=== PATIENT | male | born 1945 | race Caucasian/White ===

== ENCOUNTER 2020-08-22 13:56 | Outpatient (RCR) | payer MEDICARE, SELFPAY ==
[2013-09-01 17:22] VITALS: BMI 30.8
[2020-08-22] MEDS: COVID-19 VACC, MRNA(PFIZER)/PF 30 MCG/0.3 ML SYRINGE IM (11:15)
[2020-09-12] MEDS: COVID-19 VACC, MRNA(PFIZER)/PF 30 MCG/0.3 ML SYRINGE IM (11:05)
== END 2020-11-19 23:59 ==
LOC: IMMUN 13:56
PROVIDERS: PCP Family Medicine; Referring Provider Family Medicine; Visit Provider Family Medicine
DX: Z23 Encounter for immunization (principal)
CPT/HCPCS: 0001A; 0002A; 91300

== ENCOUNTER 2023-07-16 12:42 | Inpatient (IN) | payer MEDICARE, SELFPAY ==
[2023-07-16 12:44] VITALS: BP 170/82; PULSE 73; RESP 16; TEMP 37.2; O2SAT 97; BMI 27.9
[2023-07-16] MEDS: Ondansetron 4 MG/2 ML Vial IV ×2 (13:27→21:50)
[2023-07-16] MEDS: 0.9% Normal Saline (1000mL) 1,000 ML 1000 ML IV (13:27)
--- NOTE | 2023-07-16 13:38 | EDS_ITS ---
HPI History of Present Illness Chief Complaint: Nausea/Vomiting/Diarrhea Narrative Narrative: Patient is a 78-year-old male with history of hypertension, hyperlipidemia, diabetes who presents to the emergency department for nausea, vomiting, generalized weakness. Patient has been diagnosed with COVID-19 6 days ago, however patient was sick 1 week prior to that. Patient was also positive for COVID-19 however is getting better. Patient states this week he has had no appetite, not eating and drinking normally, has been having nausea and vomiting and this morning had diarrhea. He feels unsteady when he is up secondary to feeling weak, he is here for evaluation, the ODT Zofran that was prescribed to him is not working. He denies any fever or chills, blood in stool or vomit [facility] Medical History (Updated 07/16/23 @ 14:55 by OLEG Denis) Hypercholesteremia Hypertension Type 2 diabetes mellitus Home Medications aspirin 81 mg chewable tablet 81 mg PO DAILY@0800 heart health 09/01/13 [History Last Taken 07/15/23] hydrochlorothiazide 25 mg tablet 25 mg PO DAILY 09/01/13 [History Last Taken 07/15/23] lisinopril 40 mg tablet 40 mg PO DAILY 09/01/13 [History Last Taken 07/15/23] metformin 850 mg tablet 850 mg PO TIDCM 09/01/13 [History Last Taken 07/15/23] amlodipine 5 mg tablet 5 mg PO DAILY blood pressure 07/16/23 [History Last Taken 07/15/23] atorvastatin 40 mg tablet 40 mg PO QHS cholesterol 07/16/23 [History Last Taken 07/15/23] flaxseed oil 1,000 mg capsule 1,000 mg PO QHS supplement 07/16/23 [History Last Taken 07/15/23] glipizide 10 mg tablet, extended release 24 hr 10 mg PO DAILY 07/16/23 [History Last Taken 07/15/23] vit C 250 mg-vit E 90 mg-zinc 40 mg-copper 1 [id number] capsule (PreserVision AREDS-2) 1 tab PO BID eye supplement 07/16/23 [History Last Taken 07/15/23] Allergy/AdvReac Type Severity Reaction Status Date / Time doxycycline AdvReac Nausea/Vom/ Verified 07/16/23 12:43 Diarrhea Social History Smoking Status: Former smoker ROS ROS ED ROS Narrative Constitutional: Negative for fever, chills, weight loss. Positive for weakness Eyes: Negative for vision loss, vision change, double vision ENT: Negative for any sore throat, ear pain, congestion Cardiovascular: Negative for any chest pain, tightness, palpitations Respiratory: Negative for any cough, sputum production, hemoptysis, dyspnea, dys pnea on exertion, orthopnea Gastrointestinal: Negative for any abdominal pain, constipation, blood in stool, blood in vomit. Positive for nausea vomiting diarrhea : Negative for any urinary frequency, dysuria, retention, blood in urine Muscle skeletal: Negative for any myalgias, arthralgias, neck pain, back pain Neurological: Negative for any headache, syncope, paresthesias, dizziness Skin: Negative for any rashes, lumps, itching, abrasions, lacerations Psychiatric: Negative for any depression, anxiety, stress, suicidal ideation, homicidal ideation Hematologic: Negative for any easy bruising, excessive bruising, easy bleeding Allergies: Negative for any eczema, hives, rash EXAM Physical Exam Narrative Exam Narrative: Vital signs reviewed. HEET: Head normocephalic atraumatic, TMs clear bilaterally. Posterior pharynx is clear, dry mucous membranes. Nares clear bilaterally. Neck: Supple with no lymphadenopathy or tenderness. No signs of meningismus. Cardiac: Regular rate and rhythm no murmurs gallops or rubs, equal peripheral pulses bilaterally. Respiratory: Lungs clear to auscultation bilaterally. No chest tenderness. Abdomen: Soft, nontender, nondistended. No abdominal bruit or pulsatile masses. No hepatosplenomegaly Extremities: No peripheral edema, no signs of gross trauma or deformity. Active full range of motion of all extremities. Neuro: Cranial nerves II through XII intact, no focal neurological deficits. Skin: Clean dry and intact with no rash, purpura, petechiae, vesicles or pustules. Backs/flank: No CVA tenderness, no midline spinal tenderness, no deformity. Psych: Normal mood and affect. No SI, HI or acute psychosis. Const Vital Signs: 07/16/23 12:44 07/16/23 14:25 Temperature 98.9 F Temperature Source Temporal Pulse Rate 73 66 Respiratory Rate 16 16 Blood Pressure 170/82 H 145/68 H Blood Pressure Mean 111 93 Pulse Ox 97 97 Oxygen Delivery Method Room Air [facility] Lab Data Labs: Laboratory Results - last 24 hr 07/16/23 13:25 WBC 7.0 RBC 4.81 Hgb 12.9 L Hct 37.0 L MCV 76.9 L MCH 26.8 L MCHC 34.9 RDW Std Deviation 36.2 RDW Coeff of Meghan 12.8 Plt Count 319 MPV 9.3 Immature Gran % (Auto) 0.400 Neut % (Auto) 70.0 Lymph % (Auto) 20.3 [place] % (Auto) 9.1 Eos % (Auto) 0.1 Baso % (Auto) 0.1 Absolute Neuts (auto) 4.9 Absolute Lymphs (auto) 1.41 Nucleated RBC % 0 Sodium 119 L* Potassium 3.7 Chloride 81 L Carbon Dioxide 28.0 Anion Gap 10 BUN 18 Creatinine 0.80 Estim Creat Clear Calc 87.90 Est GFR (MDRD) Af Amer 121 Est GFR (MDRD) Non-Af 100 BUN/Creatinine Ratio 22.5 H Glucose 231 H Calcium 9.7 Total Bilirubin 0.90 AST 52 H ALT 28 Alkaline Phosphatase 81 Total Protein 7.3 Albumin 3.2 Globulin 4.1 Albumin/Globulin Ratio 0.8 L Lipase 80 H Treatment and Re-Evaluation :: Patient appears generally well, patient appears nontoxic, vital signs are stable. Presenting to the emergency department with complaints of nausea, vomiting, generalized weakness. Differential diagnosis includes dehydration, gastroenteritis, bowel obstruction, acute cholecystitis. Patient received basic laboratory values looking for any leukocytosis, electrolyte abnormality. Patient is currently having diarrhea as well as nausea and vomiting, makes bowel obstruction less likely. Patient receive IV fluids, IV Zofran. Patient be reevaluated. Patient has slight relief with the nausea medication. Patient's CBC was unremarkable, patient's chemistries do show some abnormalities. Patient's sodium was 119, this is critically low, this is concerning for the patient's weakness, as well as dehydration. Patient's creatinine is unremarkable. Glucose 231 lipase of 80 which is slightly elevated. Patient was given 1 L of normal saline. I spoke with the patient as well as the patient , patient will need to be admitted to the hospital. They are in agreement. Hospitalist paged. I spoke with hospitalist, patient admitted. Discharge Plan Triage Chief Complaint: Nausea/Vomiting/Diarrhea ED Midlevel Provider: Grupo Osborn ED Provider: Zuleika Chong Dx/Rx/DC Orders Clinical Impression: Acute dehydration, Weakness, Nausea & vomiting, Acute hyponatremia Prescriptions: No Action metformin 850 MG tablet 850 mg PO TIDCM aspirin 81 MG tablet,chewable 81 mg PO DAILY@0800 hydrochlorothiazide 25 MG tablet 25 mg PO DAILY lisinopril 40 MG tablet 40 mg PO DAILY flaxseed oil 1,000 mg capsule 1,000 mg PO QHS glipizide 10 mg tablet extended release 24hr 10 mg PO DAILY amlodipine 5 mg tablet 5 mg PO DAILY atorvastatin 40 mg tablet 40 mg PO QHS PreserVision AREDS-2 250-90-40-1 mg capsule 1 tab PO BID Primary Care Provider: Brennen Roland Referrals: Brennen Roland MD [Primary Care Provider] - Disposition Disposition: Acute Care Hospital [facility]
[2023-07-16 13:43] LABS: Absolute Lymphocyte Count 1.41 X10^3/uL (0.83-4.51); Absolute Neutrophil Count 4.9 X10^3/uL (2.0-7.7); Basophil# 0.01 X10^3/uL; Basophil% 0.1 % (0-1); Eosinophil# 0.01 X10^3/uL; Eosinophils% 0.1 % (0-5); Hemoglobin 12.9 g/dL (13.0-16.5); Lymphocyte # 1.41 X10^3/ul (0.83-4.51); Lymphocyte % 20.3 % (19-41); Mean Corp Hgb Conc 34.9 g/dL (32-36); Mean Corpuscular Hgb 26.8 pg (27.0-32.0); Mean Corpuscular Volume 76.9 fL (80-94); Mean Platelet Vol. 9.3 fl (6.2-12.0); Monocyte# 0.63 X10^3/uL; Monocyte% 9.1 % (0-10); NRBC Flagged by Analyzer 0 % (0-5); Neutrophil # 4.86 X10^3/uL (2.7-7.7); Platelet Count 319 K/mm3 (150-450); RBC Distribution Width CV 12.8 % (11.6-14.6); RBC Distribution Width SD 36.2 fl (35.1-43.9); Red Blood Count 4.81 M/mm3 (4.6-6.2)
[2023-07-16 14:00] LABS: ALB/GLOB Ratio 0.8 RATIO (0.9-2.4); AST(SGOT) 52 U/L (15-37); Alanine Aminotransfer ALT/SGPT 28 U/L (16-61); Albumin, Serum 3.2 g/dL (3.2-5.0); Alkaline Phosphatase 81 U/L (45-117); Anion Gap 10 (5-15); BUN 18 mg/dL (7-18); BUN/Creat Ratio 22.5 RATIO (10-20); Calcium,Total 9.7 mg/dL (8.5-10.1); Chloride 81 mmol/L (98-107); EST Glomerular Filtration Rate 100 mL/min (>60); Est Glom Filt Rate - Afr Amer 121 mL/min (>60); Globulin 4.1 g/dL (2.2-4.2); Glucose 231 mg/dL (74-106); Lipase 80 U/L (13-75); Potassium 3.7 mmol/L (3.5-5.1); Protein, Total 7.3 g/dL (6.4-8.2); Sodium Level 119 mmol/L (136-145)
[2023-07-16 14:25] VITALS: BP 145/68; PULSE 66; RESP 16; O2SAT 97
--- NOTE | 2023-07-16 15:06 | HP.PCM.HOS_ITS ---
HPI - General General Date of Admission: 07/16/23 Date of Service: 07/16/23 Chief Complaint: Intractable nausea vomiting HPI Narrative ROSA HIGGINS, is a 78 M with history of hypertension and diabetes who presented to [facility] 07/16/2023 due to intractable nausea, vomiting, and general weakness and now diarrhea. Patient was in his usual health until 2 weeks ago when he developed URI like symptoms and then a week ago was diagnosed with COVID, URI symptoms improved however around a week ago patient began to develop nausea and vomiting and very poor p.o. intake and has been progressively weaker and this morning developed diarrhea. Given his inability to tolerate p.o. and concerns for dehydration brought him to the ED. In the ED he was found have a sodium of 119 with last sodium in outlying facility records in March was 133. Hospitalist contacted for admission. Patient evaluated with at bedside and they report history as above. He is feeling slightly better in the ED now that he has received Zofran and fluids but still feeling weak and generally unwell. Denies history of problems with his sodium, does take hydrochlorothiazide and endorses very poor p.o. intake for the past 7 days as above. Patient denies any headache or neurological symptoms. Denies abdominal pain, no shortness of breath or cough, no fevers or chills, no swelling in extremities, denies any other complaints. [facility] Medical History (Updated 07/16/23 @ 15:[address] Akiko Montero MD) Hypercholesteremia Hypertension Type 2 diabetes mellitus Home Medications aspirin 81 mg chewable tablet 81 mg PO DAILY@0800 heart health 09/01/13 [History Last Taken 07/15/23] hydrochlorothiazide 25 mg tablet 25 mg PO DAILY 09/01/13 [History Last Taken 07/15/23] lisinopril 40 mg tablet 40 mg PO DAILY 09/01/13 [History Last Taken 07/15/23] metformin 850 mg tablet 850 mg PO TIDCM 09/01/13 [History Last Taken 07/15/23] amlodipine 5 mg tablet 5 mg PO DAILY blood pressure 07/16/23 [History Last Taken 07/15/23] atorvastatin 40 mg tablet 40 mg PO QHS cholesterol 07/16/23 [History Last Taken 07/15/23] flaxseed oil 1,000 mg capsule 1,000 mg PO QHS supplement 07/16/23 [History Last Taken 07/15/23] glipizide 10 mg tablet, extended release 24 hr 10 mg PO DAILY 07/16/23 [History Last Taken 07/15/23] vit C 250 mg-vit E 90 mg-zinc 40 mg-copper 1 [id number] capsule (PreserVision AREDS-2) 1 tab PO BID eye supplement 07/16/23 [History Last Taken 07/15/23] Allergy/AdvReac Type Severity Reaction Status Date / Time doxycycline AdvReac Nausea/Vom/ Verified 07/16/23 12:43 Diarrhea Social History Smoking Status: Former smoker ROS ROS Narrative General: Denies fever/chills HENT: Denies headache, denies stuffy nose, denies sore throat EYES: Denies changes in vision Resp: Denies cough, denies shortness of breath Cardiac: Denies chest pain GI: Denies abdominal pain, has began to have diarrhea, positive nausea vomiting : Denies changes in urination Extremity: Denies swelling MSK: Generalized weakness Neuro: Denies any numbness/tingling Heme: Denies any bleeding or bruising Skin: Denies rashes Psychiatric: No complaints voiced Vital Signs Vital Signs Vital Signs: 07/16/23 12:44 07/16/23 14:25 Temperature 98.9 F Temperature Source Temporal Pulse Rate 73 66 Respiratory Rate 16 16 Blood Pressure 170/82 H 145/68 H Blood Pressure Mean 111 93 Pulse Ox 97 97 Oxygen Delivery Method Room Air Weight Weight: 88.269 kg Body Mass Index (BMI) 27.9 Physical Exam Narrative General: Alert, oriented, no apparent distress HEENT: Atraumatic, normocephalic Eyes: Anicteric, normal conjunctiva, extraocular movements grossly intact Neck: Supple Respiratory: Clear to auscultation bilaterally, normal respiratory effort Cardiovascular: Regular rate and rhythm GI: Soft, nontender, nondistended Extremities: No edema Musculoskeletal: Moving all extremities Neuro: No overt focal neurological deficits Skin: No rashes appreciated Psych: Cooperative Results Lab / Micro Data 07/16/23 13:25 07/16/23 13:25 Labs: Laboratory Results - last 24 hr 07/16/23 13:25: WBC 7.0, RBC 4.81, Hgb 12.9 L, Hct 37.0 L, MCV 76.9 L, MCH 26.8 L, MCHC 34.9, RDW Std Deviation 36.2, RDW Coeff of Meghan 12.8, Plt Count 319, MPV 9.3, Immature Gran % (Auto) 0.400, Neut % (Auto) 70.0, Lymph % (Auto) 20.3, [place] % (Auto) 9.1, Eos % (Auto) 0.1, Baso % (Auto) 0.1, Absolute Neuts (auto) 4.9, Absolute Lymphs (auto) 1.41, Nucleated RBC % 0, Sodium 119 L*, Potassium 3.7, Chloride 81 L, Carbon Dioxide 28.0, Anion Gap 10, BUN 18, Creatinine 0.80, Estim Creat Clear Calc 87.90, Est GFR (MDRD) Af Amer 121, Est GFR (MDRD) Non-Af 100, BUN/Creatinine Ratio 22.5 H, Glucose 231 H, Calcium 9.7, Total Bilirubin 0.90, AST 52 H, ALT 28, Alkaline Phosphatase 81, Total Protein 7.3, Albumin 3.2, Globulin 4.1, Albumin/Globulin Ratio 0.8 L, Lipase 80 H Assessment & Plan Assessment/Plan (1) Acute hyponatremia: (2) Acute dehydration: (3) Nausea & vomiting: (4) Weakness: (5) Hypertension: (6) Type 2 diabetes mellitus: PLAN: Plan #Hyponatremia -Unclear chronicity but suspect sub acute due to dehydration and hydrochlorothiazide -[facility] records demonstrated Na 133 in March -Not presently symptomatic, patient being rehydrated -Will check serum and urine osmole's -Urine studies -Trend BMP #Intractable n/v/diarrhea -Likely secondary to viral illness however given diarrhea is new we will check stool studies -Will try full liquid diet, can make n.p.o. if needed -No abd pain, do not see indication for abd imaging at this time -Advance as tolerated -Continue IVF for another 1L and can reeval for further fluids if Na improving -Zofran as needed #Recent covid 19 infection -Patient presently on precautions based on positive test 6 days ago, symptoms started up to week before that however some may be able to consider removing precautions during this admission -Not hypoxic or having sx, no indication for steroids or other treatments at this time -i/s #Type 2 diabetes mellitus -Glucose checks and sliding scale insulin -Hold oral hypoglycemics # Hypertension -Holding hydrochlorothiazide -Continue amlodipine -Given dehydration holding losartan, if kidney fxn stable can resume tomorrow # Hyperlipidemia -Continue statin #DVT ppx: Lovenox subcu Akiko Montero MD Time spent in the patient's overall evaluation,decision-making process, review of diagnostic data, adjustment of management, discussion with other providers, nursing nursing and ancillary staff involved in patient's care documentation, 55 minutes Charges/Coding Visit Charges Inpatient E&M: 95438 Init Hosp L2
[2023-07-16 15:13] VITALS: PULSE 68; RESP 18; TEMP 36.7; BMI 27.6
[2023-07-16 15:40] LABS: Bacteria 0 SEEN /hpf (None Seen); Mucous, Urine 0 SEEN /hpf (<or=2+); Red Blood Cells-Urine 0 SEEN /hpf (0-5); Squamous Epithelial Cells - UA 0 SEEN /hpf (0-5); White Blood Cells 0 SEEN /hpf (0-5)
[2023-07-16 15:47] LABS: Color, Urine Yellow (Yellow); Glucose, Dipstick 100 mg/dl (Normal); Ketone-Dipstick 5 mg/dl (Negative); Leukocyte Esterase-Dipstick Negative /ul (Negative); Nitrite-Dipstick Negative (Negative); Occult Blood-Urine Negative /ul (Negative); Protein-Dipstick 30 mg/dl (Negative); Specific Gravity, Urine 1.015 (1.002-1.030); Urine Bilirubin Dipstick Negative (Negative); Urine Clarity Sl. Cloudy (Clear); Urine Urobilinogen 1 mg/dl (Normal); Urine pH 6.5 (5.0 - 8.0)
[2023-07-16 15:53] VITALS: BP 137/67; PULSE 80; RESP 16; TEMP 36.4; O2SAT 95
[2023-07-16] MEDS: 0.9% Normal Saline (1000mL) 1,000 ML 75 ML IV (15:57)
[2023-07-16] MEDS: Insulin Lispro 100 UNIT/ML INSULN.PEN SC ×2 (15:57→21:50)
[2023-07-16 16:21] LABS: Bedside Glucose 206 mg/dL (74-106)
[2023-07-16 16:59] LABS: Anion Gap 5 (5-15); BUN 15 mg/dL (7-18); BUN/Creat Ratio 21.5 RATIO (10-20); Calcium,Total 8.9 mg/dL (8.5-10.1); Chloride 85 mmol/L (98-107); EST Glomerular Filtration Rate 117 mL/min (>60); Est Glom Filt Rate - Afr Amer 141 mL/min (>60); Estimated Creatinine Clearance 81.11 ml/min; Glucose 195 mg/dL (74-106); Potassium 3.5 mmol/L (3.5-5.1); Sodium Level 118 mmol/L (136-145)
[2023-07-16 17:22] LABS: Osmolality, Serum 263 mOsm/KG (280-301)
--- OUTSIDE RECORDS SUMMARY | 2023-07-16 17:42 | XMS RPT_ITS | CCD ---
Author Name Unknown Address [address] [place] [address] Organization [facility] Care Team Providers Care Registered Representative Name Role Phone Jd Silva MD Primary Care Provider JD SILVA Primary Care Unavailable JD SILVA Primary Care Unavailable JD SILVA Attending Unavailable JD SILVA Primary Care Unavailable JD SILVA Referring Unavailable JD SILVA Primary Care Unavailable JD SILVA Attending Unavailable JD SILVA Primary Care Unavailable Allergies Allergy Classification Reported Allergen(s) Allergy Type Date of Onset Reaction(s) Facility (7 sources) Tetracycline; Translations: [TETRACYCLINE] Drug Allergy 09-16-2010 Unknown [facility] Medications Completed/Discontinued Medications Medication Drug Class(es) Dates Sig (Normalized) Sig (Original) amLODIPine 5 mg oral tablet (8 sources) Dihydropyridine Calcium Channel Max Start: 03-18-2021 End: 12-01-2022 take 1 tablet by mouth once daily amLODIPine (NORVASC) 5 mg tablet Indications: Essential hypertension, benign Take 1 tablet by mouth once daily. 90 tablet 3 12/01/2022 Active Problems Active Problems Problem Classification Problem Date Documented Da te Episodic/Chronic Diabetes mellitus without complication (13 sources) Type 2 diabetes mellitus without complication; Translations: [Type 2 diabetes mellitus without complications] Onset: 02-16-2006 Chronic Disorders of lipid metabolism (12 sources) Mixed hyperlipidemia; Translations: [Mixed hyperlipidemia] Onset: 02-16-2006 Chronic Essential hypertension (12 sources) Benign essential hypertension; Translations: [Essential (primary) hypertension] Onset: 07-15-2007 Chronic Past or Other Problems Problem Classification Problem Date Documented Da te Episodic/Chronic Abdominal hernia (12 sources) Umbilical hernia; Translations: [Umbilical hernia without obstruction or gangrene] Onset: 06-20-2012 06-20-2012 Episodic Other screening for suspected conditions (not mental disorders or infectious disease) (13 sources) Liver function tests abnormal; Translations: [Other specified abnormal findings of blood chemistry] Onset: 01-12-2011 01-12-2011 Episodic Results Test Name Value Interpretation Reference Range Facil ity Vital Signs Date Time Vital Sign Value Performing Clinician Ion conti 03-30-2023 09:25-0400 Body weight 90.22 kg Jd Silva MD Work Phone: [facility] 03-30-2023 09:25-0400 Diastolic blood pressure 80 mm[Hg] Jd Silva MD Work Phone: [facility] 03-30-2023 09:25-0400 Heart rate 70 /min Jd Silva MD Work Phone: [facility] 03-30-2023 09:25-0400 Respiratory rate 16 /min Jd Silva MD Work Phone: [facility] 03-30-2023 09:25-0400 Systolic blood pressure 154 mm[Hg] Jd Silva MD Work Phone: [facility] 12-01-2022 09:40-0400 Body weight 94.35 kg Jd Silva MD Work Phone: [facility] 12-01-2022 09:40-0400 Diastolic blood pressure 72 mm[Hg] Jd Silva MD Work Phone: [facility] 12-01-2022 09:40-0400 Heart rate 68 /min Jd Silva MD Work Phone: [facility] 12-01-2022 09:40-0400 Respiratory rate 14 /min Jd Silva MD Work Phone: [facility] 12-01-2022 09:40-0400 Systolic blood pressure 120 mm[Hg] Jd Silva MD Work Phone: [facility] 06-01-2022 09:41-0500 Diastolic blood pressure 68 mm[Hg] Jd Silva MD Work Phone: [facility] 06-01-2022 09:41-0500 Systolic blood pressure 146 mm[Hg] Jd Silva MD Work Phone: [facility] 06-01-2022 09:38-0500 Body weight 95.53 kg Jd Silva MD Work Phone: [facility] 06-01-2022 09:38-0500 Heart rate 78 /min Jd Silva MD Work Phone: [facility] 06-01-2022 09:38-0500 Respiratory rate 16 /min Jd Silva MD Work Phone: [facility] 11-25-2021 08:52-0400 Body weight 94.98 kg Jd Silva MD Work Phone: [facility] 11-25-2021 08:52-0400 Diastolic blood pressure 72 mm[Hg] Jd Silva MD Work Phone: [facility] 11-25-2021 08:52-0400 Heart rate 66 /min Jd Silva MD Work Phone: [facility] 11-25-2021 08:52-0400 Respiratory rate 16 /min Jd Silva MD Work Phone: [facility] 11-25-2021 08:52-0400 Systolic blood pressure 124 mm[Hg] Jd Silva MD Work Phone: [facility] Encounters Encounter Date Encounter Type Care Provider Facility Start: 07-12-2023 End: 07-12-2023 ambulatory JD SILVA Facility:[facility] Start: 03-30-2023 End: 03-30-2023 ambulatory JD SILVA Facility:[facility] Start: 03-30-2023 End: 03-30-2023 Patient encounter procedure Jd Silva MD Work Phone: [facility] Procedures Date Procedure Procedure Detail Performing Clinician Start: 11-26-2020 Adult depression scr eening assessment Jd Silva MD Work Phone: Start: 04-12-2012 Colonoscopy Jd cisse MD Work Phone: Plan of Treatment Date Care Activity Detail Author Start: 03-22-2024 Hepatitis B surface antibody level LDL Cholesterol [facility] Start: 12-02-2023 3 comp foot exam completed DIABETIC FOOT EXAM [facility] Start: 12-02-2023 ANNUAL PCP TEAM PROJECT SAFETY MANAGER CECI DISEASE VISIT ANNUAL PCP TEAM CHRONIC DISEASE VISIT [facility] Start: 12-02-2023 BP CONTROLLED (<130/80) BP CONTROLLE D (<130/80) [facility] Start: 12-02-2023 HEPATITIS C SCREENING HEPATITIS C SC SARAH [facility] Immunizations Immunization Date Immunization Notes Care Provider Fa cility 03-29-2023 COVID-19 vaccine, ag e 12+ yr, season (PFIZER-BIONTECH) Jd Silva MD Work Phone: [facility] 03-29-2023 respiratory syncytia l virus (RSV) vaccine, bivalent (ABRYSVO) Jd Silva MD Work Phone: [facility] 02-09-2023 influenza (aIIV4) vaccine, age 65+ yr, quadrivalent, PF (FLUAD QUAD) Jd Silva MD Work Phone: [facility] 02-09-2023 zoster vaccine recombinant Jd Silva MD Work Phone: [facility] 09-12-2020 COVID-19 vaccine, ag e 12+ yr (PFIZER-BIONTECH - PURPLE TOP) Jd Silva MD Work Phone: [facility] 08-22-2020 COVID-19 vaccine, ag e 12+ yr (PFIZER-BIONTECH - PURPLE TOP) Jd Silva MD Work Phone: [facility] 03-03-2020 influenza, high dose seasonal, preservative-free Jd Silva MD Work Phone: [facility] 03-09-2019 influenza, high dose seasonal, preservative-free Jd Silva MD Work Phone: [facility] 03-20-2016 influenza, high dose seasonal, preservative-free Jd Silva MD Work Phone: [facility] 09-13-2015 pneumococcal conjuga te vaccine, 13 valent Jd Silva MD Work Phone: [facility] 04-19-2015 influenza, seasonal, injectable Jd Silva MD Work Phone: [facility] 01-23-2014 pneumococcal polysaccharide vaccine, 23 valent Jd Silva MD Work Phone: [facility] 07-20-2013 zoster vaccine, live Jd rosenbaum MD Work Phone: [facility] Work Phone: 03-14-2010 influenza virus vacc ine, unspecified formulation Jd Silva MD Work Phone: [facility] Work Phone: 03-14-2009 influenza virus vacc ine, unspecified formulation Jd Silva MD Work Phone: [facility] Work Phone: 07-15-2007 pneumococcal polysaccharide vaccine, 23 valent Jd Silva MD Work Phone: [facility] Work Phone: 04-14-2006 influenza virus vacc ine, whole virus Jd Silva MD Work Phone: [facility] Work Phone: 02-13-2004 tetanus and diphther ia toxoids, adsorbed, preservative free, for adult use (2 Lf of tetanus toxoid and 2 Lf of diphtheria toxoid) Jd Silva MD Work Phone: [facility] Payers Date Payer Category Payer Medicare HU[employer]NA MEDICARE HU[employer]NA GOLD PLUS [id number] 2020-Present [phone] [address] [address] [place] [address] O [id number] 2020 Medicare HUMANA MEDICARE [employer]NA GOLD PLUS [id number] 2020-Present [phone] [address] [address] [place] [address] O [id number] 2020 Private Health Insurance [id number] Social History Date Type Detail Facility Start: 08-08-2012 End: 06-01-2022 Tobacco smoking status NHIS Ex-smoker [facility] Work Phone: Start: 08-08-2012 End: 06-01-2022 Tobacco use and exposure Smokeless tobacco non-user [facility] Work Phone: Start: 11-25-2021 End: 03-30-2023 Alcohol intake Current drinker of alcohol (finding) [facility] Start: 08-08-2012 History SDOH Alcohol Comment couple times per month [facility] Start: 08-08-2012 Tobacco Comment remote [facility] Start: 1945 Sex Assigned At Not on file [facility] Start: 11-15-2021 End: 11-25-2021 Exposure to SARS-CoV-2 (event) Not sure [facility] History of tobacco use Current smoker [facility] Work Phone: Start: 06-01-2022 Tobacco Comment Remote. Quit s moking 40-50 years ago. [facility] Start: 12-01-2022 End: 03-30-2023 History of Social function [facility] Work Phone: Start: 12-01-2022 End: 03-30-2023 Tobacco use panel [facility] Work Phone: Adult Depression Screening Assessment 0 [facility] Work Phone: Clinical Notes 12-13-2009 to 07-12-2023 Jd Silva MD - 03/30/2023 9:40 AM EDTTelephone Encounter - Nora Hanson Ma - 12/29/2022 3:20 PM EDTTelephone Encounter - Rodney Pugh APRN.CNP - 12/29/2022 3:16 PM EDT Note Date & Type Note Facility 07-12-2023 Note HNO ID: [id number] Author: CELIA PATINO APRN.CNP Service: ? Author Type: Nurse Practitioner Type: Progress Notes Filed: 07/12/2023 12:03 Note Text: Subjective HPI Kannan Higgins is a 78 year old male who presents with nausea and vomiting and a positive test for COVID at home yesterday. He developed sore throat and nasal congestion a week ago, and thought he just had a cold. He has been taking lakeisha seltzer cold at home. His is also sick and tested + for COVID. He has not had a fever. He states his cold symptoms have mostly resolved and then a couple days ago he vomited twice, yesterday he vomited once, and this morning he vomited once. He has nausea. States he has been drinking a lot of water and is able to keep that down. Review of Systems Constitutional: Negative for chills, fever and malaise/fatigue. HENT: Positive for congestion and sore throat. Respiratory: Negative for cough and shortness of breath. Cardiovascular: Negative for chest pain. Gastrointestinal: Positive for nausea and vomiting. Negative for abdominal pain and diarrhea. Musculoskeletal: Negative for myalgias. Neurological: Negative for headaches. BP 144/62 Pulse 86 Temp 36.8 ?C (98.2 ?F) Resp 16 Wt 89.8 kg (198 lb) SpO2 96% PAST MEDICAL HISTORY Diagnosis Date Diabetes mellitus without mention of complication Diabetes mellitus Essential hypertension, benign Hyperlipidemia PAST SURGICAL HISTORY Procedure Laterality Date COLONOSCOPY 04/14/2012 REMV CATARACT EXTRACAP,INSERT LENS Left 05/2021 Dr. Segovia REMElan CATARACT EXTRACAP,INSERT LENS Right 07/2021 Dr. Segovia RPR UMBILICAL HRNA 5 YRS/> REDUCIBLE 08/19/2012 with Small Ventralex Mesh ALLERGIES Tetracycline MEDICATIONS lisinopril (ZESTRIL) 40 mg tablet Take 1 tablet by mouth once daily. atorvastatin (LIPITOR) 40 mg tablet Take 1 tablet by mouth once daily. glipiZIDE (GLUCOTROL XL) 10mg 24 hr tablet Take 1 tablet by mouth once daily. amLODIPine (NORVASC) 5 mg tablet Take 1 tablet by mouth once daily. metFORMIN (GLUCOPHAGE) 850 mg tablet Take 1 tablet by mouth three times daily with meals. hydroCHLOROthiazide 25 mg tablet Take 1 tablet by mouth once daily. Flaxseed Oil Oil ASPIRIN 81 MG TAB Take one(1) tablet daily. ondansetron orally disintegrating (ZOFRAN ODT) 4 mg disintegrating tablet Take 1 tablet by mouth every 6 hours as needed for nausea/vomiting. FAMILY HISTORY Problem Relation Age of Onset Heart Mother Heart Father other (ulcers [Other]) Father Social History Tobacco Use Smoking status: Former Smokeless tobacco: Never Tobacco comments: Remote. Quit smoking 40-50 years ago. Vaping Use Vaping Use: Never used Substance Use Topics Alcohol use: Yes Comment: couple times per month Drug use: No Objective Physical Exam Vitals and nursing note reviewed. Constitutional: General: He is not in acute distress. Appearance: Normal appearance. He is not ill-appearing. Cardiovascular: Rate and Rhythm: Normal rate and regular rhythm. Heart sounds: Normal heart sounds. Pulmonary: Effort: Pulmonary effort is normal. No respiratory distress. Breath sounds: Normal breath sounds. No wheezing or rales. Skin: General: Skin is warm and dry. Findings: No erythema or rash. Neurological: Mental Status: He is alert. ASSESSMENT/PLAN: 1. Nausea and vomiting, unspecified vomiting type - ICD9: 787.01, ICD10: R11.2 (primary diagnosis) - ONDANSETRON 4 MG DISINTEGRATING TABLET 2. COVID-19 - ICD9: 079.89, ICD10: U07.1 - per positive home test. - symptoms x 5 days, supportive care as discussed. - offered confirmation testing, patient declined. - Follow-up with your PCP in 3-5 days if symptoms have not improved or sooner if symptoms worsen - Discussed red flags and need for immediate medical evaluation if any occur. - Discussed supportive care treatment with fluids, rest and analgesia. - Discussed expected course of illness Celia Patino APRN.[facility] 03-30-2023 Note HNO ID: [id number] Author: Jd Silva MD Service: ? Author Type: Physician Type: Progress Notes Filed: 03/30/2023 10:15 AM Note Text: Chief Complaint Patient presents with: 4 month follow up HPI Kannan Higgins is a 78 year old male who presents here today for 4 month follow up. Denies any bowel, GI, or urinary issues. HTN: Does not check BP at home. Taking Norvasc 5 mg daily, Lisinopril 40 mg daily and HCTZ 25 mg daily. Denies any chest pains, dizziness, or SOB. DM: Pt was started on Jardiance last visit but stated that he took it over 2 weeks and it caused blurry vision so this was changed to the Rybelsus but pt never started it, cost too much. Taking Metformin 850 mg 1 pill TID, Glucotrol xl 10 mg daily. Denies any hypoglycemic episodes, no neuropathy sx. Has been checking BS once daily in AM, non fasting readings 150-160. He has been strict about diet and walking more for exercise. Eye exams done at [facility]. Lipid: Taking Lipitor 40 mg daily, tolerating well, no myalgia or gi upset. Tries to watch diet and walking a few miles a day for exercise. He has cut down evening snacks, not eating anything after supper. Past medical history, appointments, medications, allergies reviewed. Previous Medical History PAST MEDICAL HISTORY Diagnosis Date Diabetes mellitus without mention of complication Diabetes mellitus Essential hypertension, benign Hyperlipidemia Previous Surgical History PAST SURGICAL HISTORY Procedure Laterality Date COLONOSCOPY 04/14/2012 REMV CATARACT EXTRACAP,INSERT LENS Left 05/2021 Dr. Segovia REMV CATARACT EXTRACAP,INSERT LENS Right 07/2021 Dr. Segovia RPR UMBILICAL HRNA 5 YRS/> REDUCIBLE 08/19/2012 with Small Ventralex Mesh Family History FAMILY HISTORY Problem Relation Age of Onset Heart Mother Heart Father other (ulcers [Other]) Father Patient Allergies ALLERGIES Allergen Reactions Tetracycline Unknown Current Medications Current Outpatient Medications on File Prior to Visit Medication Sig semaglutide (RYBELSUS) 3 mg tablet Take 1 tablet by mouth daily before breakfast. Take 30 minutes before the first food, beverage, or other oral medications of the day with no more than 4 ounces of plain water lisinopril (ZESTRIL) 40 mg tablet Take 1 tablet by mouth once daily. atorvastatin (LIPITOR) 40 mg tablet Take 1 tablet by mouth once daily. glipiZIDE (GLUCOTROL XL) 10mg 24 hr tablet Take 1 tablet by mouth once daily. amLODIPine (NORVASC) 5 mg tablet Take 1 tablet by mouth once daily. metFORMIN (GLUCOPHAGE) 850 mg tablet Take 1 tablet by mouth three times daily with meals. hydroCHLOROthiazide 25 mg tablet Take 1 tablet by mouth once daily. Flaxseed Oil Oil ASPIRIN 81 MG TAB Take one(1) tablet daily. No current facility-administered medications on file prior to visit. Social History Social History Tobacco Use Smoking status: Former Smokeless tobacco: Never Tobacco comments: Remote. Quit smoking 40-50 years ago. Vaping Use Vaping Use: Never used Substance Use Topics Alcohol use: Yes Comment: couple times per month Drug use: No EXAM: BP 154/80 Pulse 70 Resp 16 Wt 90.2 kg (198 lb 14.4 oz) General Appearance: Well appearing, alert, in no acute distress, well-hydrated, well nourished. and Overweight. Lungs: Lungs clear to auscultation. No wheezing, rhonchi, rales.. Heart: RRR without murmur, gallop, or rubs. No ectopy. Health Maintenance List DTaP,Tdap,Td Vaccine(1 - Tdap) due on 02/14/2004 Hepatitis B Vaccine(1 of 3 - Risk 3-dose series) Never done Advance Directive Discussion Never done HbA1C due on 02/23/2023 Shingrix Vaccine(3 of 3) due on 04/06/2023 Hepatitis C Screening due on 12/02/2023 Dilated Retinal Exam due on 10/28/2023 Urine Albumin:Creatinine Ratio due on 11/24/2023 LDL Cholesterol due on 11/24/2023 Diabetic Foot Exam due on 12/02/2023 Annual PCP Team Chronic Disease Visit due on 12/02/2023 BP Controlled (<130/80) due on 12/02/2023 Influenza Vaccine Completed Depression Assessment Completed Covid-19 Vaccine Completed Pneumococcal Vaccine: 65+ Completed Colorectal Cancer Screening Discontinued Data reviewed Appointment on 03/22/2023 Component Date Value Cholesterol, Total 03/22/2023 108 Triglyceride 03/22/2023 136 HDL Cholesterol 03/22/2023 48 Non HDL Cholesterol 03/22/2023 60 Fasting Time 03/22/2023 12 VLDL Cholesterol 03/22/2023 27 TC:HDL Ratio 03/22/2023 2.25 LDL Cholesterol 03/22/2023 33 LDL:HDL Ratio 03/22/2023 0.69 Hemoglobin A1C 03/22/2023 7.4 (H) Estimated Average Glucose 03/22/2023 166 Protein, Total 03/22/2023 6.8 Albumin 03/22/2023 4.5 Calcium, Total 03/22/2023 9.7 Bilirubin, Total 03/22/2023 0.4 Alkaline Phosphatase 03/22/2023 50 AST 03/22/2023 40 ALT 03/22/2023 27 Glucose 03/22/2023 201 (H) BUN 03/22/2023 10 Creatinine 03/22/2023 0.61 (L) Sodium 03/22/2023 132 (L) Potassium 03/22/2023 4 (more content not included)... [facility] 03-30-2023 History of Present illness Narrative Chief Complaint Patient presents with: 4 month follow up HPI Kannan Higgins is a 78 year old male who presents here today for 4 month follow up. Denies any bowel, GI, or urinary issues. HTN: Does not check BP at home. Taking Norvasc 5 mg daily, Lisinopril 40 mg daily and HCTZ 25 mg daily. Denies any chest pains, dizziness, or SOB. DM: Pt was started on Jardiance last visit but stated that he took it over 2 weeks and it caused blurry vision so this was changed to the Rybelsus but pt never started it, cost too much. Taking Metformin 850 mg 1 pill TID, Glucotrol xl 10 mg daily. Denies any hypoglycemic episodes, no neuropathy sx. Has been checking BS once daily in AM, non fasting readings 150-160. He has been strict about diet and walking more for exercise. Eye exams done at [facility]. Lipid: Taking Lipitor 40 mg daily, tolerating well, no myalgia or gi upset. Tries to watch diet and walking a few miles a day for exercise. He has cut down evening snacks, not eating anything after supper. Past medical history, appointments, medications, allergies reviewed. Previous Medical History PAST MEDICAL HISTORY Diagnosis Date Diabetes mellitus without mention of complication Diabetes mellitus Essential hypertension, benign Hyperlipidemia Previous Surgical History PAST SURGICAL HISTORY Procedure Laterality Date COLONOSCOPY 04/14/2012 REMV CATARACT EXTRACAP,INSERT LENS Left 05/2021 Dr. Luca MORAES CATARACT EXTRACAP,INSERT LENS Right 07/2021 Dr. Segovia RPR UMBILICAL HRNA 5 YRS/> REDUCIBLE 08/19/2012 with Small Ventralex Mesh Family History FAMILY HISTORY Problem Relation Age of Onset Heart Mother Heart Father other (ulcers [Other]) Father Patient Allergies ALLERGIES Allergen Reactions Tetracycline Unknown Current Medications Current Outpatient Medications on File Prior to Visit Medication Sig semaglutide (RYBELSUS) 3 mg tablet Take 1 tablet by mouth daily before breakfast. Take 30 minutes before the first food, beverage, or other oral medications of the day with no more than 4 ounces of plain water lisinopril (ZESTRIL) 40 mg tablet Take 1 tablet by mouth once daily. atorvastatin (LIPITOR) 40 mg tablet Take 1 tablet by mouth once daily. glipiZIDE (GLUCOTROL XL) 10mg 24 hr tablet Take 1 tablet by mouth once daily. amLODIPine (NORVASC) 5 mg tablet Take 1 tablet by mouth once daily. metFORMIN (GLUCOPHAGE) 850 mg tablet Take 1 tablet by mouth three times daily with meals. hydroCHLOROthiazide 25 mg tablet Take 1 tablet by mouth once daily. Flaxseed Oil Oil ASPIRIN 81 MG TAB Take one(1) tablet daily. No current facility-administered medications on file prior to visit. Social History Social History Tobacco Use Smoking status: Former Smokeless tobacco: Never Tobacco comments: Remote. Quit smoking 40-50 years ago. Vaping Use Vaping Use: Never used Substance Use Topics Alcohol use: Yes Comment: couple times per month Drug use: No EXAM: BP 154/80 Pulse 70 Resp 16 Wt 90.2 kg (198 lb 14.4 oz) General Appearance: Well appearing, alert, in no acute distress, well-hydrated, well nourished. and Overweight. Lungs: Lungs clear to auscultation. No wheezing, rhonchi, rales.. Heart: RRR without murmur, gallop, or rubs. No ectopy. Health Maintenance List DTaP,Tdap,Td Vaccine(1 - Tdap) due on 02/14/2004 Hepatitis B Vaccine(1 of 3 - Risk 3-dose series) Never done Advance Directive Discussion Never done HbA1C due on 02/23/2023 Shingrix Vaccine(3 of 3) due on 04/06/2023 Hepatitis C Screening due on 12/02/2023 Dilated Retinal Exam due on 10/28/2023 Urine Albumin:Creatinine Ratio due on 11/24/2023 LDL Cholesterol due on 11/24/2023 Diabetic Foot Exam due on 12/02/2023 Annual PCP Team Chronic Disease Visit due on 12/02/2023 BP Controlled (<130/80) due on 12/02/2023 Influenza Vaccine Completed Depression Assessment Completed Covid-19 Vaccine Completed Pneumococcal Vaccine: 65+ Completed Colorectal Cancer Screening Discontinued Data reviewed Appointment on 03/22/2023 Component Date Value Cholesterol, Total 03/22/2023 108 Triglyceride 03/22/2023 136 HDL Cholesterol 03/22/2023 48 Non HDL Cholesterol 03/22/2023 60 Fasting Time 03/22/2023 12 VLDL Cholesterol 03/22/2023 27 TC:HDL Ratio 03/22/2023 2.25 LDL Cholesterol 03/22/2023 33 LDL:HDL Ratio 03/22/2023 0.69 Hemoglobin A1C 03/22/2023 7.4 (H) Estimated Average Glucose 03/22/2023 166 Protein, Total 03/22/2023 6.8 Albumin 03/22/2023 4.5 Calcium, Total 03/22/2023 9.7 Bilirubin, Total 03/22/2023 0.4 Alkaline Phosphatase 03/22/2023 50 AST 03/22/2023 40 ALT 03/22/2023 27 Glucose 03/22/2023 201 (H) BUN 03/22/2023 10 Creatinine 03/22/2023 0.61 (L) Sodium 03/22/2023 132 (L) Potassium 03/22/2023 4.5 Chloride 03/22/2023 97 CO2 03/22/2023 24 Anion Gap 03/22/2023 11 Estimated Glomerular Jose F* 03/22/2023 100 ASSESSMENT/PLAN: 1. Type 2 diabetes mellitus without complication, without long-term current use of insulin (HCC) - ICD9: 250.00, ICD10: E11.9 (primary diagnosis) - Improved - Continue current medications - Counseled on healthy diet and regular exercise - Discussed need for and benefit of weight loss. BMI 28.54 kg/(m^2) 2. Mixed hyperlipidemia - ICD9: 272.2, ICD10: E78.2 - Controlled - Continue current medications - Counseled on healthy diet and regular exercise - Discussed need for and benefit of weight loss. BMI 28.54 kg/(m^2) 3. Essential hypertension, benign - ICD9: 401.1, ICD10: I10 - Controlled - Continue current medications - Recommend home blood pressure monitoring, to bring results to next visit - Encouraged sodium restriction, DASH or Mediterranean diet - Recommend regular aerobic exercise - Discussed need for and benefit of weight loss. BMI 28.54 kg/(m^2) Follow up in 6 months with fasting labs prior. I agree with the Chief Complaint, ROS, and Past Histories independently gathered by the clinical technical support internship and the remaining scribed note accurately describes my personal service to the patient. Medical Decision Making: Problems: Moderate: 2+ stable chronic illnesses Data: Unique test result(s) reviewed: 3+ Unique test(s) ordered: 3+ Risk: Moderate: Drug management Medical Decision Making Level: 4 - Moderate Jd Silva MD The documentation for this note was completed by Nora Hanson Ma acting as scribe for Jd Silva MD. March 30, 2023 9:33 AM. Nora Hanson Ma documented in this encounter [facility] 12-29-2022 Miscellaneous Notes Pt notified. Nora Hanson Ma Patient has to wait 30 minutes or greater. Cannot take any other medications for at least 30 minutes after. Or this drug will not work Rodney Pugh APRN.SILK SPOOLER Pt notified and voiced understanding. He wants to know if it is ok to take with his other medications or does he have to wait 30 minutes like instructions direct? Nora Hanson Ma We can change from Jardiance to Rybelsus as ordered, once daily Jd Silva MD Pt calls states been taking Jardiance for a little over 2 weeks now. He states had to stop taking because it is making his vision very blurry.Asking if there may be something else he could try in its place. After this long has not improved only gotten worse. documented in this encounter [facility] 12-01-2022 Note HNO ID: [id number] Author: Jd Silva MD Service: ? Author Type: Physician Type: Progress Notes Filed: 12/01/2022 3:27 PM Note Text: Chief Complaint Patient presents with: 6 Month Exam HPI Kannan Higgins is a 77 year old male who presents here today for a 6 month follow up. Pt here today for his routine follow up. HM: Depression screening; denies feeling depressed or hopeless. Depression screening tool completed and reviewed. Based on score and interview, patient is not at risk for depression. Screening tool discussed with patient, and I recommended no further intervention at this time. Does not have an advanced directive. Denies any stomach or bowel issues. Pt referred at last OV to General Surgery to update Colonoscopy, no visit scheduled. Occasionally gets up at night to urinate. HTN: Denies checking his BP at home or having symptoms of chest pain, sob or dizziness. On current regimen of HCTZ 25 mg once daily, Lisinopril 40 mg daily and Norvasc 5 mg daily. Tolerating medications well. Lipids: Diet could improve, likes to snack. Denies any formal exercise other then doing work around his home. Currently taking Lipitor 40 mg once daily. Tolerating medication well. DM: Denies checking sugars a home or having symptoms of hypoglycemia or neuropathy. On current regimen of Metformin 850 mg TID and Glucotrol 10 mg daily. Has preferred in the past to work on diet/exercise vs adding/changing medication. Follows with [facility], Dr. Segovia for eye exams. Does not follow with bead wrapper. Past medical history, appointments, medications, allergies reviewed. Previous Medical History PAST MEDICAL HISTORY Diagnosis Date Diabetes mellitus without mention of complication Diabetes mellitus Essential hypertension, benign Hyperlipidemia Previous Surgical History PAST SURGICAL HISTORY Procedure Laterality Date COLONOSCOPY 04/14/2012 REMV CATARACT EXTRACAP,INSERT LENS Left 05/2021 Dr. Segovia REMElan CATARACT EXTRACAP,INSERT LENS Right 07/2021 Dr. Segovia RPR UMBILICAL HRNA 5 YRS/> REDUCIBLE 08/19/2012 with Small Ventralex Mesh Family History FAMILY HISTORY Problem Relation Age of Onset Heart Mother Heart Father other (ulcers [Other]) Father Patient Allergies ALLERGIES Allergen Reactions Tetracycline Unknown Current Medications Current Outpatient Medications on File Prior to Visit Medication Sig lisinopril (ZESTRIL, PRINIVIL) 40 mg tablet Take 1 tablet by mouth once daily. atorvastatin (LIPITOR) 40 mg tablet Take 1 tablet by mouth once daily. glipiZIDE (GLUCOTROL XL) 10mg 24 hr tablet Take 1 tablet by mouth once daily. amLODIPine (NORVASC) 5 mg tablet Take 1 tablet by mouth once daily. metFORMIN (GLUCOPHAGE) 850 mg tablet Take 1 tablet by mouth three times daily with meals. hydroCHLOROthiazide (HYDRODIURIL, ESIDRIX) 25 mg tablet Take 1 tablet by mouth once daily. Flaxseed Oil Oil ASPIRIN 81 MG TAB Take one(1) tablet daily. No current facility-administered medications on file prior to visit. Social History Social History Tobacco Use Smoking status: Former Smokeless tobacco: Never Tobacco comments: Remote. Quit smoking 40-50 years ago. Vaping Use Vaping Use: Never used Substance Use Topics Alcohol use: Yes Comment: couple times per month Drug use: No EXAM: BP 120/72 Pulse 68 Resp 14 Wt 94.3 kg (208 lb) General Appearance: Well appearing, alert, in no acute distress, well-hydrated, well nourished. and Overweight. Lungs: Lungs clear to auscultation. No wheezing, rhonchi, rales.. Heart: RRR without murmur, gallop, or rubs. No ectopy. Feet: Shoes and socks removed, No deformities, ulcers, calluses, normal distal pulses, and sensitive to 10 gm monofilament . Health Maintenance List HEPATITIS C SCREENING Never done BP CONTROLLED (<130/80) Never done DTAP,TDAP,TD(1 - Tdap) due on 02/14/2004 SHINGRIX VACCINE(2 of 3) due on 09/14/2013 COLORECTAL CANCER SCREENING due on 04/12/2022 ADVANCE DIRECTIVE DISCUSSION Never done DEPRESSION ASSESSMENT due on 06/14/2022 DIABETIC FOOT EXAM due on 11/25/2022 HBA1C due on 02/23/2023 ANNUAL PCP TEAM CHRONIC DISEASE VISIT due on 06/01/2023 DILATED RETINAL EXAM due on 10/28/2023 URINE ALBUMIN:CREATININE RATIO due on 11/24/2023 LDL CHOLESTEROL due on 11/24/2023 INFLUENZA Completed COVID-19 VACCINE Completed PNEUMOCOCCAL: 65+ Completed Data reviewed Appointment on 11/23/2022 Component Date Value Protein, Total 11/23/2022 6.9 Albumin 11/23/2022 4.5 Calcium, Total 11/23/2022 9.3 Bilirubin, Total 11/23/2022 0.4 Alkaline Phosphatase 11/23/2022 56 AST 11/23/2022 53 (A) ALT 11/23/2022 37 Glucose 11/23/2022 257 (A) BUN 11/23/2022 11 Creatinine 11/23/2022 0.64 (A) Sodium 11/23/2022 133 (A) Potassium 11/23/2022 4.7 Chloride 11/23/2022 97 CO2 11/23/2022 24 Anion Gap 11/23/2022 12 Estimated Glomerular Jose F* 11/23/2022 99 Hemoglob (more content not included)... [facility] 12-01-2022 History of Present illness Narrative Chief Complaint Patient presents with: 6 Month Exam HPI Kannan Higgins is a 77 year old male who presents here today for a 6 month follow up. Pt here today for his routine follow up. HM: Depression screening; denies feeling depressed or hopeless. Depression screening tool completed and reviewed. Based on score and interview, patient is not at risk for depression. Screening tool discussed with patient, and I recommended no further intervention at this time. Does not have an advanced directive. Denies any stomach or bowel issues. Pt referred at last OV to General Surgery to update Colonoscopy, no visit scheduled. Occasionally gets up at night to urinate. HTN: Denies checking his BP at home or having symptoms of chest pain, sob or dizziness. On current regimen of HCTZ 25 mg once daily, Lisinopril 40 mg daily and Norvasc 5 mg daily. Tolerating medications well. Lipids: Diet could improve, likes to snack. Denies any formal exercise other then doing work around his home. Currently taking Lipitor 40 mg once daily. Tolerating medication well. DM: Denies checking sugars a home or having symptoms of hypoglycemia or neuropathy. On current regimen of Metformin 850 mg TID and Glucotrol 10 mg daily. Has preferred in the past to work on diet/exercise vs adding/changing medication. Follows with [facility], Dr. Segovia for eye exams. Does not follow with bead wrapper. Past medical history, appointments, medications, allergies reviewed. Previous Medical History PAST MEDICAL HISTORY Diagnosis Date Diabetes mellitus without mention of complication Diabetes mellitus Essential hypertension, benign Hyperlipidemia Previous Surgical History PAST SURGICAL HISTORY Procedure Laterality Date COLONOSCOPY 04/14/2012 REMV CATARACT EXTRACAP,INSERT LENS Left 05/2021 Dr. Segovia REMV CATARACT EXTRACAP,INSERT LENS Right 07/2021 Dr. Segovia RPR UMBILICAL HRNA 5 YRS/> REDUCIBLE 08/19/2012 with Small Ventralex Mesh Family History FAMILY HISTORY Problem Relation Age of Onset Heart Mother Heart Father other (ulcers [Other]) Father Patient Allergies ALLERGIES Allergen Reactions Tetracycline Unknown Current Medications Current Outpatient Medications on File Prior to Visit Medication Sig lisinopril (ZESTRIL, PRINIVIL) 40 mg tablet Take 1 tablet by mouth once daily. atorvastatin (LIPITOR) 40 mg tablet Take 1 tablet by mouth once daily. glipiZIDE (GLUCOTROL XL) 10mg 24 hr tablet Take 1 tablet by mouth once daily. amLODIPine (NORVASC) 5 mg tablet Take 1 tablet by mouth once daily. metFORMIN (GLUCOPHAGE) 850 mg tablet Take 1 tablet by mouth three times daily with meals. hydroCHLOROthiazide (HYDRODIURIL, ESIDRIX) 25 mg tablet Take 1 tablet by mouth once daily. Flaxseed Oil Oil ASPIRIN 81 MG TAB Take one(1) tablet daily. No current facility-administered medications on file prior to visit. Social History Social History Tobacco Use Smoking status: Former Smokeless tobacco: Never Tobacco comments: Remote. Quit smoking 40-50 years ago. Vaping Use Vaping Use: Never used Substance Use Topics Alcohol use: Yes Comment: couple times per month Drug use: No EXAM: BP 120/72 Pulse 68 Resp 14 Wt 94.3 kg (208 lb) General Appearance: Well appearing, alert, in no acute distress, well-hydrated, well nourished. and Overweight. Lungs: Lungs clear to auscultation. No wheezing, rhonchi, rales.. Heart: RRR without murmur, gallop, or rubs. No ectopy. Feet: Shoes and socks removed, No deformities, ulcers, calluses, normal distal pulses, and sensitive to 10 gm monofilament . Health Maintenance List HEPATITIS C SCREENING Never done BP CONTROLLED (<130/80) Never done DTAP,TDAP,TD(1 - Tdap) due on 02/14/2004 SHINGRIX VACCINE(2 of 3) due on 09/14/2013 COLORECTAL CANCER SCREENING due on 04/12/2022 ADVANCE DIRECTIVE DISCUSSION Never done DEPRESSION ASSESSMENT due on 06/14/2022 DIABETIC FOOT EXAM due on 11/25/2022 HBA1C due on 02/23/2023 ANNUAL PCP TEAM CHRONIC DISEASE VISIT due on 06/01/2023 DILATED RETINAL EXAM due on 10/28/2023 URINE ALBUMIN:CREATININE RATIO due on 11/24/2023 LDL CHOLESTEROL due on 11/24/2023 INFLUENZA Completed COVID-19 VACCINE Completed PNEUMOCOCCAL: 65+ Completed Data reviewed Appointment on 11/23/2022 Component Date Value Protein, Total 11/23/2022 6.9 Albumin 11/23/2022 4.5 Calcium, Total 11/23/2022 9.3 Bilirubin, Total 11/23/2022 0.4 Alkaline Phosphatase 11/23/2022 56 AST 11/23/2022 53 (A) ALT 11/23/2022 37 Glucose 11/23/2022 257 (A) BUN 11/23/2022 11 Creatinine 11/23/2022 0.64 (A) Sodium 11/23/2022 133 (A) Potassium 11/23/2022 4.7 Chloride 11/23/2022 97 CO2 11/23/2022 24 Anion Gap 11/23/2022 12 Estimated Glomerular Jose F* 11/23/2022 99 Hemoglobin A1C 11/23/2022 8.2 (A) Estimated Average Glucose 11/23/2022 189 Cholesterol, Total 11/23/2022 104 Triglyceride 11/23/2022 129 HDL Cholesterol 11/23/2022 43 Non HDL Cholesterol 11/23/2022 61 Fasting Time 11/23/2022 13 VLDL Cholesterol 11/23/2022 26 TC:HDL Ratio 11/23/2022 2.42 LDL Cholesterol 11/23/2022 35 LDL:HDL Ratio 11/23/2022 0.81 Creatinine, Ur Random (U* 11/23/2022 67.7 Albumin, Urine Random 11/23/2022 23.1 Albumin/Creat Ratio 11/23/2022 34 (A) ASSESSMENT/PLAN: 1. Type 2 diabetes mellitus without complication, without long-term current use of insulin (HCC) - ICD9: 250.00, ICD10: E11.9 (primary diagnosis) - Worsening control - Continue current medications - Start empagliflozin (Jardiance) 10 mg daily - Counseled on healthy diet and regular exercise - Discussed need for and benefit of weight loss. BMI 29.84 kg/(m^2) - GLIPIZIDE ER 10 MG TABLET, EXTENDED RELEASE 24 HR - METFORMIN 850 MG TABLET 2. BENIGN HYPERTENSION - ICD9: 401.1, ICD10: I10 - Controlled - Continue current medications - Recommend home blood pressure monitoring, to bring results to next visit - Encouraged sodium restriction, DASH or Mediterranean diet - Recommend regular aerobic exercise 3. Mixed hyperlipidemia - ICD9: 272.2, ICD10: E78.2 - Controlled - Continue current medications - Counseled on healthy diet and regular exercise - Discussed need for and benefit of weight loss. BMI 29.84 kg/(m^2) - ATORVASTATIN 40 MG TABLET 4. Essential hypertension, benign - ICD9: 401.1, ICD10: I10 - Controlled - Continue current medications - Recommend home blood pressure monitoring, to bring results to next visit - Encouraged sodium restriction, DASH or Mediterranean diet - Recommend regular aerobic exercise - LISINOPRIL 40 MG TABLET - AMLODIPINE 5 MG TABLET - HYDROCHLOROTHIAZIDE 25 MG TABLET Follow up in 4 months with fasting labs prior. I agree with the Chief Complaint, ROS, and Past Histories independently gathered by the clinical technical support internship and the remaining scribed note accurately describes my personal service to the patient. Medical Decision Making: Problems: Moderate: 2+ stable chronic illnesses and 1+ chronic illnesses with change Data: Unique test result(s) reviewed: 3+ Unique test(s) ordered: 3+ Risk: Moderate: Drug management Medical Decision Making Level: 4 - Moderate Jd Silva MD The documentation for this note was completed by Nora Hanson Ma acting as scribe for Jd Silva MD. December 01, 2022 9:48 AM. Nora Hanson Ma documented in this encounter [facility] 06-01-2022 Instructions Mariola Walters Ma - 06/01/2022 9:47 AM EST Pneumonia vaccines - You do not need the new shot due to have 3 shots total already. Colonoscopy - Referred to General Surgery, Dr. Reis. Schedule when leaving today. documented in this encounter [facility] 06-01-2022 History of Present illness Narrative Chief Complaint Patient presents with: F/U 6 Month HPI Kannan Higgins is a 77 year old male who presents here today for a 6 month follow up. Pt here today for routine follow up. Getting ready for Winter. GI/Uro - Denies any stomach, bowel or urinary issues. Will occasionally get up at night to urinate, generally once. Last colonoscopy [address] Reis; willing to update. Lipid: Takes Lipitor 40 mg daily, doing well with no side effects. Admits his diet could be better, likes snacking too much. Denies any formal exercise, other then work around the house. New Years resolution is to do better on his diet and getting more active. HTN: Denies checking BP at home, no chest pains, dizziness, or SOB. Takes HCTZ 25 mg daily, Lisinopril 40 mg daily, and Norvasc 5 mg daily. No issues with current medication regimen. DM: Denies checking sugars at home. Denies any hypoglycemic episodes or no neuropathy sx. Likes to snack too much.Taking Metformin 850 mg TID and Glucotrol 10 mg daily. Due for DM foot exam. Follows with Dr. Segovia at [facility] for dm eye exams. Had cataracts removed in May 2021 and Jul 2021. Pt at this time declines wanting to add/change his medication. Would prefer to work on diet and get more active before adding medication. HM - Declines Hep C screening. Agrees to Colonoscopy. Denies having Adv Dir/Living Will. Declines Depression. Pt states he had routine eye exam done last month, will request records. Past medical history, appointments, medications, allergies reviewed. Previous Medical History PAST MEDICAL HISTORY Diagnosis Date Diabetes mellitus without mention of complication Diabetes mellitus Essential hypertension, benign Hyperlipidemia Previous Surgical History PAST SURGICAL HISTORY Procedure Laterality Date COLONOSCOPY 04/14/2012 REMV CATARACT EXTRACAP,INSERT LENS Left 05/2021 Dr. Segovia REMV CATARACT EXTRACAP,INSERT LENS Right 07/2021 Dr. Segovia RPR UMBILICAL HRNA 5 YRS/> REDUCIBLE 08/19/2012 with Small Ventralex Mesh Family History FAMILY HISTORY Problem Relation Age of Onset Heart Mother Heart Father other (ulcers [Other]) Father Patient Allergies ALLERGIES Allergen Reactions Tetracycline Unknown Current Medications Current Outpatient Medications on File Prior to Visit Medication Sig lisinopril (ZESTRIL, PRINIVIL) 40 mg tablet Take 1 tablet by mouth once daily. atorvastatin (LIPITOR) 40 mg tablet Take 1 tablet by mouth once daily. glipiZIDE (GLUCOTROL XL) 10mg 24 hr tablet Take 1 tablet by mouth once daily. amLODIPine (NORVASC) 5 mg tablet Take 1 tablet by mouth once daily. metFORMIN (GLUCOPHAGE) 850 mg tablet Take 1 tablet by mouth three times daily with meals. hydroCHLOROthiazide (HYDRODIURIL, ESIDRIX) 25 mg tablet Take 1 tablet by mouth once daily. Flaxseed Oil Oil ASPIRIN 81 MG TAB Take one(1) tablet daily. No current facility-administered medications on file prior to visit. Social History Social History Tobacco Use Smoking status: Former Smokeless tobacco: Never Tobacco comments: remote Vaping Use Vaping Use: Never used Substance Use Topics Alcohol use: Yes Comment: couple times per month Drug use: No EXAM: BP 146/68 (BP Site: Left Arm, BP Position: Sitting, BP Cuff Size: Regular Adult) Pulse 78 Resp 16 Wt 95.5 kg (210 lb 9.6 oz) BMI 30.22 kg/m General Appearance: Well appearing, alert, in no acute distress, well-hydrated, well nourished and Overweight. Lungs: Lungs clear to auscultation. No wheezing, rhonchi, rales.. Heart: RRR without murmur, gallop, or rubs. No ectopy.. Health Maintenance List HEPATITIS C SCREENING Never done - Declines DTAP,TDAP,TD(1 - Tdap) due on 02/14/2004 SHINGRIX VACCINE(2 of 3) due on 09/14/2013 ADVANCE DIRECTIVE DISCUSSION Never done - Discussed DEPRESSION ASSESSMENT Never done - Declined COVID-19 VACCINE(5 - Booster for Pfizer series) due on 11/20/2021 - rec'd INFLUENZA(1) due on 02/12/2022 - rec'd. COLORECTAL CANCER SCREENING due on 04/12/2022 - referred DILATED RETINAL EXAM due on 04/15/2022 - Sent records request HBA1C due on 05/19/2022 URINE ALBUMIN:CREATININE RATIO due on 11/17/2022 LDL CHOLESTEROL due on 11/17/2022 DIABETIC FOOT EXAM due on 11/25/2022 ANNUAL PCP TEAM CHRONIC DISEASE VISIT due on 11/25/2022 BP CONTROLLED (<130/80) due on 11/25/2022 PNEUMOCOCCAL: 65+ Completed Data reviewed Appointment on 05/25/2022 Component Date Value Cholesterol, Total 05/25/2022 112 Triglyceride 05/25/2022 205 (A) HDL Cholesterol 05/25/2022 41 Non HDL Cholesterol 05/25/2022 71 Fasting Time 05/25/2022 13 VLDL Cholesterol 05/25/2022 41 (A) TC:HDL Ratio 05/25/2022 2.73 LDL Cholesterol 05/25/2022 30 LDL:HDL Ratio 05/25/2022 0.73 Protein, Total 05/25/2022 7.0 Albumin 05/25/2022 4.4 Calcium, Total 05/25/2022 9.7 Bilirubin, Total 05/25/2022 0.4 Alkaline Phosphatase 05/25/2022 49 AST 05/25/2022 54 (A) ALT 05/25/2022 40 Glucose 05/25/2022 207 (A) BUN 05/25/2022 10 Creatinine 05/25/2022 0.62 (A) Sodium 05/25/2022 134 (A) Potassium 05/25/2022 4.1 Chloride 05/25/2022 97 CO2 05/25/2022 24 Anion Gap 05/25/2022 13 Estimated Glomerular Jose F* 05/25/2022 100 Hemoglobin A1C 05/25/2022 7.9 (A) Estimated Average Glucose 05/25/2022 180 ASSESSMENT/PLAN: 1. Type 2 diabetes mellitus without complication, without long-term current use of insulin (HCC) - ICD9: 250.00, ICD10: E11.9 (primary diagnosis) uncontrolled - Continue current medications - Encouraged regular aerobic exercise and weight loss - pt declines wanting to add medication at present time. - COMP METABOLIC PANEL - HGB A1C - ALBUMIN/CREAT RATIO RND UR 2. BENIGN HYPERTENSION - ICD9: 401.1, ICD10: I10 - High today, but bornderline. - Work on diet/exercise - Continue current medication regimen. - COMP METABOLIC PANEL - LIPID PANEL BASIC 3. Mixed hyperlipidemia - ICD9: 272.2, ICD10: E78.2 - good control - Continue current medication. - Discussed the benefits of regular aerobic exercise and weight loss. - COMP METABOLIC PANEL - LIPID PANEL BASIC 4. Screening for colon cancer - ICD9: V76.51, ICD10: Z12.11 - Referral completed, will call to schedule - CONSULT TO GENERAL SURGERY 6 mo f/u with labs. I agree with the Chief Complaint, ROS, and Past Histories independently gathered by the clinical technical support internship and the remaining scribed note accurately describes my personal service to the patient. Medical Decision Making: Problems: Moderate: 2+ stable chronic illnesses Data: Unique test result(s) reviewed: 3+ Unique test(s) ordered: 3+ Risk: Moderate: Drug management Medical Decision Making Level: 4 - Moderate Jd Silva MD The documentation for this note was completed by Mariola Walters Ma acting as scribe for Jd Silva MD. June 01, 2022 9:51 AM. Mariola Walters Ma documented in this encounter [facility] 02-10-2022 Miscellaneous Notes The following approved medication requests have been transmitted electronically. Requested Prescriptions Pending Prescriptions Disp Refills lisinopril (ZESTRIL, PRINIVIL) 40 mg tablet 90 tablet 3 Sig: Take 1 tablet by mouth once daily. atorvastatin (LIPITOR) 40 mg tablet 90 tablet 3 Sig: Take 1 tablet by mouth once daily. glipiZIDE XL (GLUCOTROL XL) 10 mg 24 hr tablet 90 tablet 3 Sig: Take 1 tablet by mouth once daily. amLODIPine (NORVASC) 5 mg tablet 90 tablet 3 Sig: Take 1 tablet by mouth once daily. metFORMIN (GLUCOPHAGE) 850 mg tablet 270 tablet 3 Sig: Take 1 tablet by mouth three times daily with meals. hydroCHLOROthiazide (HYDRODIURIL, ESIDRIX) 25 mg tablet 90 tablet 3 Sig: Take 1 tablet by mouth once daily. Rodney Pugh APRN.MANDY Patient has been identified by name and date of : Yes Patient phones for refill(s): Requested Prescriptions Pending Prescriptions Disp Refills lisinopril (ZESTRIL, PRINIVIL) 40 mg tablet 90 tablet 3 Sig: Take 1 tablet by mouth once daily. atorvastatin (LIPITOR) 40 mg tablet 90 tablet 3 Sig: Take 1 tablet by mouth once daily. glipiZIDE XL (GLUCOTROL XL) 10 mg 24 hr tablet 90 tablet 3 Sig: Take 1 tablet by mouth once daily. amLODIPine (NORVASC) 5 mg tablet 90 tablet 3 Sig: Take 1 tablet by mouth once daily. metFORMIN (GLUCOPHAGE) 850 mg tablet 270 tablet 3 Sig: Take 1 tablet by mouth three times daily with meals. hydroCHLOROthiazide (HYDRODIURIL, ESIDRIX) 25 mg tablet 90 tablet 3 Sig: Take 1 tablet by mouth once daily. Date of last office visit in primary care: 11/25/2021, has appt 06/01/2022 Last 2 Encounter Wt Readings: Date: Wt: 11/25/2021 95 kg (209 lb 6.4 oz) 05/27/2021 94.8 kg (209 lb) Previous labs/tests for medication: Diabetes: Hemoglobin A1C (%) Date Value 11/17/2021 7.8 05/20/2021 7.2 11/19/2020 6.4 Cholesterol: HDL Cholesterol (mg/dL) Date Value 11/17/2021 41 05/20/2021 42 LDL Cholesterol (mg/dL) Date Value 11/17/2021 38 05/20/2021 37 ALT (U/L) Date Value 11/17/2021 31 05/20/2021 36 Non HDL Cholesterol (mg/dL) Date Value 11/17/2021 70 05/20/2021 71 Blood Pressure: BUN (mg/dL) Date Value 11/17/2021 10 05/20/2021 11 Sodium (mmol/L) Date Value 11/17/2021 133 05/20/2021 136 Last 1 Encounter BP Readings: Date: BP: 11/25/2021 124/72 Please advise. Thank you. Irma Cuadra LPN documented in this encounter [facility] 11-25-2021 History of Present illness Narrative Chief Complaint Patient presents with: 6 Month Exam HPI Kannan Higgins is a 76 year old male who presents here today for a 6 month follow up. Pt here today for his routine 6 mo f/u and lab review. Does not have an advanced directive or living will. Denies any stomach, bowel or urinary issues. Gets up once a night occ to urinate. Lipid: Taking Lipitor 40 mg daily, tolerating well, no myalgia or gi upset. Admits his diet could be better, but does attempt to be mindful. He admits to being less active in the past 6 months. Warmer months he is more active. HTN: Denies checking BP at home, no chest pains, dizziness, or SOB. Taking HCTZ 25 mg daily, Lisinopril 40 mg daily, and Norvasc 5 mg daily. Pt tolerating medications well with no side effects. DM: Denies checking sugars at home. Denies any hypoglycemic episodes or no neuropathy sx. Taking Metformin 850 mg TID and Glucotrol 10 mg daily. Due for DM foot exam. Follows with Dr. Segovia at [facility] for dm eye exams. Had cataracts removed in May 2021 and Jul 2021. Past medical history, appointments, medications, allergies reviewed. Previous Medical History PAST MEDICAL HISTORY Diagnosis Date Diabetes mellitus without mention of complication Diabetes mellitus Essential hypertension, benign Hyperlipidemia Previous Surgical History PAST SURGICAL HISTORY Procedure Laterality Date COLONOSCOPY -14 REPAIR UMBILICAL LILLY,5+Y/O,REDUC 08/19/12 with Small Ventralex Mesh Family History FAMILY HISTORY Problem Relation Age of Onset Heart Mother Heart Father other (ulcers [Other]) Father Patient Allergies ALLERGIES Allergen Reactions Tetracycline Unknown Current Medications Current Outpatient Medications on File Prior to Visit Medication Sig lisinopril (ZESTRIL, PRINIVIL) 40 mg tablet Take 1 tablet by mouth once daily. atorvastatin (LIPITOR) 40 mg tablet Take 1 tablet by mouth once daily. glipiZIDE (GLUCOTROL XL) 10mg 24 hr tablet Take 1 tablet by mouth once daily. amLODIPine (NORVASC) 5 mg tablet Take 1 tablet by mouth once daily. metFORMIN (GLUCOPHAGE) 850 mg tablet Take 1 tablet by mouth three times daily with meals. hydroCHLOROthiazide (HYDRODIURIL, ESIDRIX) 25 mg tablet Take 1 tablet by mouth once daily. Flaxseed Oil Oil ASPIRIN 81 MG TAB Take one(1) tablet daily. No current facility-administered medications on file prior to visit. Social History Social History Tobacco Use Smoking status: Former Smoker Smokeless tobacco: Never Used Tobacco comment: remote Vaping Use Vaping Use: Never used Substance Use Topics Alcohol use: Yes Comment: couple times per month Drug use: No EXAM: BP 124/72 Pulse 66 Resp 16 Wt 95 kg (209 lb 6.4 oz) BMI 30.05 kg/m General Appearance: Well appearing, alert, in no acute distress, well-hydrated, well nourished. and Overweight. Lungs: Lungs clear to auscultation. No wheezing, rhonchi, rales.. Heart: RRR without murmur, gallop, or rubs. No ectopy. Feet: Shoes and socks removed, No deformities, ulcers, calluses, normal distal pulses and sensitive to 10 gm monofilament Health Maintenance List ABDOMINAL AORTIC ANEURYSM SCREENING Never done BP CONTROLLED (<130/80) Never done DTAP,TDAP,TD(1 - Tdap) due on 02/14/2004 DIABETIC FOOT EXAM due on 08/13/2020 ADVANCE DIRECTIVE DISCUSSION Never done COVID-19 VACCINE(4 - Booster for Pfizer series) due on 07/28/2021 URINE ALBUMIN:CREATININE RATIO due on 11/19/2021 HEPATITIS C SCREENING due on 11/26/2021 SHINGRIX VACCINE(2 of 3) due on 11/26/2021 HBA1C due on 11/18/2021 DEPRESSION SCREENING due on 11/26/2021 COLORECTAL CANCER SCREENING due on 04/12/2022 DILATED RETINAL EXAM due on 04/15/2022 LDL CHOLESTEROL due on 05/20/2022 ANNUAL PCP TEAM CHRONIC DISEASE VISIT due on 05/27/2022 INFLUENZA Completed PNEUMOCOCCAL: 65+ Completed Data reviewed Appointment on 11/17/2021 Component Date Value Protein, Total 11/17/2021 6.7 Albumin 11/17/2021 4.4 Calcium, Total 11/17/2021 9.5 Bilirubin, Total 11/17/2021 0.3 Alkaline Phosphatase 11/17/2021 53 AST 11/17/2021 44 (A) ALT 11/17/2021 31 Glucose 11/17/2021 239 (A) BUN 11/17/2021 10 Creatinine 11/17/2021 0.64 (A) Sodium 11/17/2021 133 (A) Potassium 11/17/2021 4.6 Chloride 11/17/2021 98 CO2 11/17/2021 24 Anion Gap 11/17/2021 11 Estimated Glomerular Jose F* 11/17/2021 99 WBC 11/17/2021 5.93 RBC 11/17/2021 4.56 Hemoglobin 11/17/2021 12.7 (A) Hematocrit 11/17/2021 39.7 MCV 11/17/2021 87.1 MCH 11/17/2021 27.9 MCHC 11/17/2021 32.0 RDW-CV 11/17/2021 13.9 Platelet Count 11/17/2021 209 MPV 11/17/2021 10.8 Neut% 11/17/2021 43.4 Abs Neut 11/17/2021 2.57 Lymph% 11/17/2021 43.8 Abs Lymph 11/17/2021 2.60 Burnett% 11/17/2021 7.8 Abs Burnett 11/17/2021 0.46 Eosin% 11/17/2021 3.7 Abs Eosin 11/17/2021 0.22 Baso% 11/17/2021 1.0 Abs Baso 11/17/2021 0.06 Immature Gran % 11/17/2021 0.3 Abs Immature Gran 11/17/2021 <0.03 NRBC 11/17/2021 0.0 Absolute nRBC 11/17/2021 <0.01 Diff Type 11/17/2021 Auto Cholesterol, Total 11/17/2021 111 Triglyceride 11/17/2021 159 (A) HDL Cholesterol 11/17/2021 41 Non HDL Cholesterol 11/17/2021 70 Fasting Time 11/17/2021 12 VLDL Cholesterol 11/17/2021 32 (A) TC:HDL Ratio 11/17/2021 2.71 LDL Cholesterol 11/17/2021 38 LDL:HDL Ratio 11/17/2021 0.93 Hemoglobin A1C 11/17/2021 7.8 (A) Estimated Average Glucose 11/17/2021 177 Creatinine, Ur Random (U* 11/17/2021 69.6 Albumin, Urine Random 11/17/2021 <12.0 Albumin/Creat Ratio 11/17/2021 <17 ASSESSMENT/PLAN: 1. Type 2 diabetes mellitus without complication, without long-term current use of insulin (HCC) - ICD9: 250.00, ICD10: E11.9 (primary diagnosis) uncontrolled - Continue current medications - Watch lifestyle; consider additional medication if A1c goes up any further 2. Mixed hyperlipidemia - ICD9: 272.2, ICD10: E78.2 - good control - Continue current medication. - Encouraged following a low fat, low cholesterol diet. - Discussed the benefits of regular aerobic exercise and weight loss. 3. Essential hypertension, benign - ICD9: 401.1, ICD10: I10 - good control - Continue current medication(s) - Recommended regular aerobic exercise. - Recommend home blood pressure monitoring, to bring results in on next visit - Goal of BP <130/80 Follow up in 6 months with fasting labs prior. I agree with the Chief Complaint, ROS, and Past Histories independently gathered by the clinical technical support internship and the remaining scribed note accurately describes my personal service to the patient. Medical Decision Making: Problems: Moderate: 2+ stable chronic illnesses Data: Unique test result(s) reviewed: 3+ Unique test(s) ordered: 3+ Risk: Moderate: Drug management Medical Decision Making Level: 4 - Moderate Jd Silva MD The documentation for this note was completed by Nora Hanson Ma acting as scribe for Jd Silva MD. November 25, 2021 8:55 AM. Nora Hanson Ma documented in this encounter [facility] documented as of this encounter (statuses as of 11/25/2021) [facility] History of Past illness Narrative* Problem Noted Date Resolved Date LFT's abnormal 12/13/2009 01/12/2011 documented as of this encounter (statuses as of 02/10/2022) [facility] History of Past illness Narrative* Problem Noted Date Resolved Date LFT's abnormal 12/13/2009 01/12/2011 documented as of this encounter (statuses as of 06/01/2022) [facility] History of Past illness Narrative* Problem Noted Date Resolved Date LFT's abnormal 12/13/2009 01/12/2011 documented as of this encounter (statuses as of 12/02/2022) [facility] History of Past illness Narrative* Problem Noted Date Diagnosed Date Resolved Date LFT's abnormal 12/13/2009 01/12/2011 documented as of this encounter (statuses as of 12/30/2022) [facility] History of Past illness Narrative* Problem Noted Date Diagnosed Date Resolved Date LFT's abnormal 12/13/2009 01/12/2011 documented as of this encounter (statuses as of 03/30/2023) [facility] note* Diagnosis Type 2 diabetes mellitus without complication, without long-term current use of insulin (HCC)- Primary Mixed hyperlipidemia Essential hypertension, benign [facility] Diagnosis BENIGN HYPERTENSION Essential hypertension, benign Mixed hyperlipidemia Type 2 diabetes mellitus without complication, without long-term current use of insulin (HCC) documented in this encounter [facility] note* Diagnosis Type 2 diabetes mellitus without complication, without long-term current use of insulin (HCC)- Primary BENIGN HYPERTENSION Essential hypertension, benign Mixed hyperlipidemia Screening for colon cancer Special screening for malignant neoplasms, colon documented in this encounter [facility] note* Diagnosis Type 2 diabetes mellitus without complication, without long-term current use of insulin (HCC)- Primary BENIGN HYPERTENSION Essential hypertension, benign Mixed hyperlipidemia documented in this encounter [facility] note* Diagnosis Type 2 diabetes mellitus without complication, without long-term current use of insulin (HCC)- Primary documented in this encounter [facility] note* Diagnosis Type 2 diabetes mellitus without complication, without long-term current use of insulin (HCC)- Primary Mixed hyperlipidemia Essential hypertension, benign documented in this encounter [facility] Reason for Referral Specialty Diagnoses / Procedures Referred By Ramon baeza Referred To Contact General Surgery Diagnoses Screening for colon cancer Procedures CONSULT TO GENERAL SURGERY OFFICE/OUTPATIENT [facility] 60-74 MINUTES Jd Silva MD [address] [place] [address] Referral ID Status Reason Start Date Expiration Date Visits Requested Visits Authorized [id number] Pending Review PCP Requested Referral 2 06/01/2023 1 1 Summary Purpose Family History No Family History Records Found Advance Directives No Advanced Directives Records Found Additional Source Comments Source Comments (unrecognize d section and content) In the event this informatio n is protected by the Federal Confidentiality of Alcohol and Drug Abuse Patient Records regulations: The Federal rules restrict any use of the information to criminally investigate or prosecute any alcohol or drug abuse patient.[facility] event this information is protected by the Federal Confidentiality of Alcohol and Drug Abuse Patient Records regulations: The Federal rules restrict any use of the information to criminally investigate or prosecute any alcohol or drug abuse patient.[facility] the event this information is protected by the Federal Confidentiality of Alcohol and Drug Abuse Patient Records regulations: The Federal rules restrict any use of the information to criminally investigate or prosecute any alcohol or drug abuse patient.[facility] event this information is protected by the Federal Confidentiality of Alcohol and Drug Abuse Patient Records regulations: The Federal rules restrict any use of the information to criminally investigate or prosecute any alcohol or drug abuse patient.[facility] the event this information is protected by the Federal Confidentiality of Alcohol and Drug Abuse Patient Records regulations: The Federal rules restrict any use of the information to criminally investigate or prosecute any alcohol or drug abuse patient.[facility] the event this information is protected by the Federal Confidentiality of Alcohol and Drug Abuse Patient Records regulations: The Federal rules restrict any use of the information to criminally investigate or prosecute any alcohol or drug abuse patient.[facility] Reason for Visit (unrecogniz ed section and content) Reason Onset Date Comments Refill Request 02/10/2022 Reason Comments F/U 6 Month Reason Comments Medication Problem Reason Comments 4 month follow up Care Teams (unrecognized sec tion and content) Registered Representative Relationship Specialty Start Date End Date Jd Silva MD [address] [place] [address] PCP - General Family Practice 10/09/14 Registered Representative Relationship Specialty Start Date End Date Jd Silva MD [address] [place] [address] PCP - General Family Medicine 10/09/14 Registered Representative Relationship Specialty Start Date End Date Jd Silva MD [address] [place] [address] PCP - General Family Medicine 10/09/14 Registered Representative Relationship Specialty Start Date End Date Jd Silva MD [address] [place], [place] [id number] PCP - General Family Medicine 10/09/14 Registered Representative Relationship Specialty Start Date End Date Jd Silva MD [address] [place], [place] [id number] PCP - General Family Medicine 10/09/14 (unrecognized sect ion and content) No Status Records Found INFORMATION SOURCE (unrecogn ized section and content) FOR RECORDS PERTAINING TO PATIENTS WHO ARE OR HAVE BEEN ENROLLED IN A CHEMICAL DEPENDENCY/SUBSTANCEABUSE PROGRAM, SOME INFORMATION MAY BE OMITTED. This clinical summary was aggregated from multiple sources. Caution should be exercised in using it in the provision of clinical care. This summary normalizes information from multiple sources, and as a consequence, information in this document may materially change the coding, format and clinical context of patient data. In addition, data may be omitted in some cases. CLINICAL DECISIONS SHOULD BE BASED ON THE PRIMARY CLINICAL RECORDS. [employer] provides no warranty or guarantee of the accuracy or completeness of information in this document.
--- OUTSIDE RECORDS SUMMARY | 2023-07-16 18:00 | XMS RPT_ITS | CCD ---
Author Name Unknown Address [address] [place] [address] Organization [facility] Care Team Providers Care Clinical Registered Nurse Name Role Phone Jd Silva MD Primary Care Provider [phone] JD SILVA Primary Care Unavailable JD SILVA Primary Care Unavailable JD SILVA Attending Unavailable JD SILVA Primary Care Unavailable JD SILVA Referring Unavailable JD SILVA Primary Care Unavailable JD SILVA Attending Unavailable JD SILVA Primary Care Unavailable Allergies Allergy Classification Reported Allergen(s) Allergy Type Date of Onset Reaction(s) Facility (7 sources) Tetracycline; Translations: [TETRACYCLINE] Drug Allergy 09-16-[address] [facility] Medications Completed/Discontinued Medications Medication Drug Class(es) Dates [...] 90.22 kg Jd Silva MD Work Phone: [facility] 03-30-2023 09:25-0400 Diastolic blood pressure 80 mm[Hg] Jd Silva MD Work Phone: [facility] 03-30-2023 09:25-0400 Heart rate 70 /min Jd Silva MD Work Phone: [facility] 03-30-2023 09:25-0400 Respiratory rate 16 /min Jd Silva MD Work Phone: [facility] 03-30-2023 09:25-0400 Systolic blood pressure 154 mm[Hg] Jd Silva MD Work Phone: [facility] 12-01-2022 09:40-0400 Body weight 94.35 kg Jd Silva MD Work Phone: [facility] 12-01-2022 09:40-0400 Diastolic blood pressure 72 mm[Hg] Jd Silva MD Work Phone: [facility] 12-01-2022 09:40-0400 Heart rate 68 /min Jd Silva MD Work Phone: [facility] 12-01-2022 09:40-0400 Respiratory rate 14 /min Jd Silva MD Work Phone: [facility] 12-01-2022 09:40-0400 Systolic blood pressure 120 mm[Hg] Jd Silva MD Work Phone: [facility] 06-01-2022 09:41-0500 Diastolic blood pressure 68 mm[Hg] Jd Silva MD Work Phone: [facility] 06-01-2022 09:41-0500 Systolic blood pressure 146 mm[Hg] Jd Silva MD Work Phone: [facility] 06-01-2022 09:38-0500 Body weight 95.53 kg Jd Silva MD Work Phone: [facility] 06-01-2022 09:38-0500 Heart rate 78 /min Jd Silva MD Work Phone: [facility] 06-01-2022 09:38-0500 Respiratory rate 16 /min Jd Silva MD Work Phone: [facility] 11-25-2021 08:52-0400 Body weight 94.98 kg Jd Silva MD Work Phone: [facility] 11-25-2021 08:52-0400 Diastolic blood pressure 72 mm[Hg] Jd Silva MD Work Phone: [facility] 11-25-2021 08:52-0400 Heart rate 66 /min Jd Silva MD Work Phone: [facility] 11-25-2021 08:52-0400 Respiratory rate 16 /min Jd Silva MD Work Phone: [facility] 11-25-2021 08:52-0400 Systolic blood pressure 124 mm[Hg] Jd Silva MD Work Phone: [facility] Encounters Encounter Date Encounter Type Care Provider Facility Start: 07-12-2023 End: 07-12-2023 ambulatory JD SILVA Facility:[facility] Start: 03-30-2023 End: 03-30-2023 ambulatory JD SILVA Facility:[facility] Start: 03-30-2023 End: 03-30-2023 Patient encounter procedure Jd Silva MD Work Phone: [facility] Procedures Date Procedure Procedure Detail Performing Clinician Start: 11-26-2020 Adult depression scr eening assessment Jd Silva MD Work Phone: Start: 04-12-2012 Colonoscopy Jd cisse MD Work Phone: Plan of Treatment Date Care Activity Detail Author Start: 03-22-2024 Hepatitis B surface antibody level LDL Cholesterol [facility] Start: 12-02-2023 3 comp foot exam completed DIABETIC FOOT EXAM [facility] Start: 12-02-2023 ANNUAL PCP TEAM ENCODING CLERK CECI DISEASE VISIT ANNUAL PCP TEAM CHRONIC DISEASE VISIT [facility] Start: 12-02-2023 BP CONTROLLED (<130/80) BP CONTROLLE D (<130/80) [facility] Start: 12-02-2023 HEPATITIS C SCREENING HEPATITIS C SC SARAH [facility] Immunizations Immunization Date Immunization Notes Care Provider Fa cility 03-29-2023 COVID-19 vaccine, ag e 12+ yr, season (PFIZER-BIONTECH) Jd Silva MD Work Phone: [facility] 03-29-2023 respiratory syncytia l virus (RSV) vaccine, bivalent (ABRYSVO) Jd Silva MD Work Phone: [facility] 02-09-2023 influenza (aIIV4) vaccine, age 65+ yr, quadrivalent, PF (FLUAD QUAD) Jd Silva MD Work Phone: [facility] 02-09-2023 zoster vaccine recombinant Jd Silva MD Work Phone: [facility] 09-12-2020 COVID-19 vaccine, ag e 12+ yr (PFIZER-BIONTECH - PURPLE TOP) Jd Silva MD Work Phone: [facility] 08-22-2020 COVID-19 vaccine, ag e 12+ yr (PFIZER-BIONTECH - PURPLE TOP) Jd Silva MD Work Phone: [facility] 03-03-2020 influenza, high dose seasonal, preservative-free Jd Silva MD Work Phone: [facility] 03-09-2019 influenza, high dose seasonal, preservative-free Jd Silva MD Work Phone: [facility] 03-20-2016 influenza, high dose seasonal, preservative-free Jd Silva MD Work Phone: [facility] 09-13-2015 pneumococcal conjuga te vaccine, 13 valent Jd Silva MD Work Phone: [facility] 04-19-2015 influenza, seasonal, injectable Jd Silva MD Work Phone: [facility] 01-23-2014 pneumococcal polysaccharide vaccine, 23 valent Jd Silva MD Work Phone: [facility] 07-20-2013 zoster vaccine, live Jd rosenbaum MD Work Phone: [facility] Work Phone: 03-14-2010 influenza virus vacc ine, unspecified formulation Jd Silva MD Work Phone: [facility] Work Phone: 03-14-2009 influenza virus vacc ine, unspecified formulation Jd Silva MD Work Phone: [facility] Work Phone: 07-15-2007 pneumococcal polysaccharide vaccine, 23 valent Jd Silva MD Work Phone: [facility] Work Phone: 04-14-2006 influenza virus vacc ine, whole virus Jd Silva MD Work Phone: [facility] Work Phone: 02-13-2004 tetanus and diphther ia toxoids, adsorbed, preservative free, for adult use (2 Lf of tetanus toxoid and 2 Lf of diphtheria toxoid) Jd Silva MD Work Phone: [facility] Payers Date Payer Category Payer Medicare [employer] MEDICARE HU[employer]NA GOLD PLUS [id number] 2020-Present [phone] [address] [address] [place] [address] O [id number] 2020 Medicare HU[employer]NA MEDICARE [employer] GOLD PLUS [id number] 2020-Present [phone] [address] [address] [place] [address] O [id number] 2020 Private Health Insurance [id number] Social History Date Type Detail Facility Start: 08-08-2012 End: 06-01-2022 Tobacco smoking status NHIS Ex-smoker [facility] Work Phone: Start: 08-08-2012 End: 06-01-2022 Tobacco use and exposure Smokeless tobacco non-user [facility] Work Phone: Start: 11-25-2021 End: 03-30-2023 Alcohol intake Current drinker of alcohol (finding) [facility] Start: 08-08-2012 History SDOH Alcohol Comment couple times per month [facility] Start: 08-08-2012 Tobacco Comment remote [facility] Start: 1945 Sex Assigned At Not on file C [facility] Start: 11-15-2021 End: 11-25-2021 Exposure to SARS-CoV-2 (event) Not sure [facility] History of tobacco use Current smoker [facility] Work Phone: Start: 06-01-2022 Tobacco Comment Remote. Quit s moking 40-50 years ago[address] [facility] Start: 12-01-2022 End: 03-30-2023 History of Social function [facility] Work Phone: Start: 12-01-2022 End: 03-30-2023 Tobacco use panel [facility] Work Phone: Adult Depression Screening Assessment [address] [facility] Work Phone: Clinical Notes 12-13-2009 to 07-12-2023 Jd Silva MD - 03/30/2023 9:40 AM EDTTelephone Encounter - Nora Hanson Ma - 12/29/2022 3:20 PM EDTTelephone Encounter - Rodney Pugh APRN.CNP - 12/29/2022 3:16 PM EDT Note Date & Type Note Facility 07-12-2023 Note HNO ID: [id number] Author: CELIA PATINO APRN.CNP Service: ? Author [...] Discussed expected course of illness Celia Patino APRN.[facility] 03-30-2023 Note HNO ID: [id number] Author: Jd Silva MD Service: ? Author [...] more for exercise. Eye exams done at [facility]. Lipid: Taking Lipitor 40 mg daily, tolerating [...] Potassium 03/22/2023 4 (more content not included)... [facility] 03-30-2023 History of Present illness Narrative Chief [...] more for exercise. Eye exams done at [facility]. Lipid: Taking Lipitor 40 mg daily, tolerating [...] Past Histories independently gathered by the clinical cryptologic support specialist and the remaining scribed note accurately describes [...] Nora Hanson Ma documented in this encounter [facility] 12-29-2022 Miscellaneous Notes Pt notified. Nora Hanson Ma Patient has to wait 30 minutes or greater. Cannot take any other medications for at least 30 minutes after. Or this drug will not work Rodney Pugh APRN.[employer]OLD [employer] Pt notified and voiced understanding. He wants [...] only gotten worse. documented in this encounter [facility] 12-01-2022 Note HNO ID: [id number] Author: Jd Silva MD Service: ? Author [...] on diet/exercise vs adding/changing medication. Follows with [facility], Dr. Segovia for eye exams. Does not follow with toe stapler. Past medical history, appointments, medications, allergies reviewed. [...] 11/23/2022 99 Hemoglob (more content not included)... [facility] 12-01-2022 History of Present illness Narrative Chief [...] on diet/exercise vs adding/changing medication. Follows with [facility], Dr. Segovia for eye exams. Does not follow with toe stapler. Past medical history, appointments, medications, allergies reviewed. [...] Past Histories independently gathered by the clinical cryptologic support specialist and the remaining scribed note accurately describes [...] Nora Hanson Ma documented in this encounter [facility] 06-01-2022 Instructions Mariola Walters Ma - 06/01/2022 9:47 AM EST Pneumonia vaccines - You do not need the new shot due to have 3 shots total already. Colonoscopy - Referred to General Surgery, Dr. Reis. Schedule when leaving today. documented in this encounter [facility] 06-01-2022 History of Present illness Narrative Chief [...] foot exam. Follows with Dr. Segovia at [facility] for dm eye exams. Had cataracts removed [...] Past Histories independently gathered by the clinical cryptologic support specialist and the remaining scribed note accurately describes [...] Mariola Walters Ma documented in this encounter [facility] 02-10-2022 Miscellaneous Notes The following approved medication [...] Irma Cuadra LPN documented in this encounter [facility] 11-25-2021 History of Present illness Narrative Chief [...] foot exam. Follows with Dr. Segovia at [facility] for dm eye exams. Had cataracts removed [...] Lymph% 11/17/2021 43.8 Abs Lymph 11/17/2021 2.60 [place]% 11/17/2021 7.8 Abs [place] 11/17/2021 0.46 Eosin% 11/17/2021 3.7 Abs Eosin [...] Past Histories independently gathered by the clinical cryptologic support specialist and the remaining scribed note accurately describes [...] Nora Hanson Ma documented in this encounter [facility] documented as of this encounter (statuses as of 11/25/2021) [facility] History of Past illness Narrative* Problem Noted Date Resolved Date LFT's abnormal 12/13/2009 01/12/2011 documented as of this encounter (statuses as of 02/10/2022) [facility] History of Past illness Narrative* Problem Noted Date Resolved Date LFT's abnormal 12/13/2009 01/12/2011 documented as of this encounter (statuses as of 06/01/2022) [facility] History of Past illness Narrative* Problem Noted Date Resolved Date LFT's abnormal 12/13/2009 01/12/2011 documented as of this encounter (statuses as of 12/02/2022) [facility] History of Past illness Narrative* Problem Noted Date Diagnosed Date Resolved Date LFT's abnormal 12/13/2009 01/12/2011 documented as of this encounter (statuses as of 12/30/2022) [facility] History of Past illness Narrative* Problem Noted Date Diagnosed Date Resolved Date LFT's abnormal 12/13/2009 01/12/2011 documented as of this encounter (statuses as of 03/30/2023) [facility] note* Diagnosis Type 2 diabetes mellitus without complication, without long-term current use of insulin (HCC)- Primary Mixed hyperlipidemia Essential hypertension, benign [facility] Diagnosis BENIGN HYPERTENSION Essential hypertension, benign Mixed hyperlipidemia Type 2 diabetes mellitus without complication, without long-term current use of insulin (HCC) documented in this encounter [facility] note* Diagnosis Type 2 diabetes mellitus without complication, without long-term current use of insulin (HCC)- Primary BENIGN HYPERTENSION Essential hypertension, benign Mixed hyperlipidemia Screening for colon cancer Special screening for malignant neoplasms, colon documented in this encounter [facility] note* Diagnosis Type 2 diabetes mellitus without complication, without long-term current use of insulin (HCC)- Primary BENIGN HYPERTENSION Essential hypertension, benign Mixed hyperlipidemia documented in this encounter [facility] note* Diagnosis Type 2 diabetes mellitus without complication, without long-term current use of insulin (HCC)- Primary documented in this encounter [facility] note* Diagnosis Type 2 diabetes mellitus without complication, without long-term current use of insulin (HCC)- Primary Mixed hyperlipidemia Essential hypertension, benign documented in this encounter [facility] Reason for Referral Specialty Diagnoses / Procedures Referred By Ramon baeza Referred To Contact General Surgery Diagnoses Screening for colon cancer Procedures CONSULT TO GENERAL SURGERY OFFICE/OUTPATIENT [facility] 60-74 MINUTES Jd Silva MD [address] [place] [address] Referral ID Status Reason Start Date Expiration Date Visits Requested Visits Authorized [id number] Pending Review PCP Requested Referral 2 06/01/2023 [...] or prosecute any alcohol or drug abuse patient.[facility] the event this information is protected by the Federal Confidentiality of Alcohol and Drug Abuse Patient Records regulations: The Federal rules restrict any use of the information to criminally investigate or prosecute any alcohol or drug abuse patient.[facility] the event this information is protected by the Federal Confidentiality of Alcohol and Drug Abuse Patient Records regulations: The Federal rules restrict any use of the information to criminally investigate or prosecute any alcohol or drug abuse patient.[facility] the event this information is protected by the Federal Confidentiality of Alcohol and Drug Abuse Patient Records regulations: The Federal rules restrict any use of the information to criminally investigate or prosecute any alcohol or drug abuse patient.[facility] the event this information is protected by the Federal Confidentiality of Alcohol and Drug Abuse Patient Records regulations: The Federal rules restrict any use of the information to criminally investigate or prosecute any alcohol or drug abuse patient.[facility] the event this information is protected by the Federal Confidentiality of Alcohol and Drug Abuse Patient Records regulations: The Federal rules restrict any use of the information to criminally investigate or prosecute any alcohol or drug abuse patient.[facility] Reason for Visit (unrecogniz ed section and content) Reason Onset Date Comments Refill Request 02/10/2022 Reason Comments F/U 6 Month Reason Comments Medication Problem Reason Comments 4 month follow up Care Teams (unrecognized sec tion and content) Clinical Registered Nurse Relationship Specialty Start Date End Date Jd Silva MD [address] [place] [address] PCP - General Family Practice 10/09/14 Clinical Registered Nurse Relationship Specialty Start Date End Date Jd Silva MD [address] [place] [address] PCP - General Family Medicine 10/09/14 Clinical Registered Nurse Relationship Specialty Start Date End Date Jd Silva MD [address] [place] [address] PCP - General Family Medicine 10/09/14 Clinical Registered Nurse Relationship Specialty Start Date End Date Jd Silva MD [address] [place], [place] [id number] PCP - General Family Medicine 10/09/14 Clinical Registered Nurse Relationship Specialty Start Date End Date Jd Silva MD [address], [place] [id number] PCP - General Family Medicine 10/09/14 (unrecognized [...] BE BASED ON THE PRIMARY CLINICAL RECORDS. [employer] provides no warranty or guarantee of the accuracy or completeness of information in this document.
[2023-07-16 19:48] LABS: Anion Gap 9 (5-15); BUN 13 mg/dL (7-18); BUN/Creat Ratio 18.5 RATIO (10-20); Chloride 90 mmol/L (98-107); EST Glomerular Filtration Rate 116 mL/min (>60); Est Glom Filt Rate - Afr Amer 140 mL/min (>60); Estimated Creatinine Clearance 81.11 ml/min; Glucose 189 mg/dL (74-106); Potassium 3.6 mmol/L (3.5-5.1); Sodium Level 125 mmol/L (136-145)
[2023-07-16 21:50] VITALS: BP 140/76; PULSE 82; RESP 18; TEMP 36.8; O2SAT 94
[2023-07-16] MEDS: Atorvastatin Calcium 40 MG Tablet PO (21:50)
[2023-07-16] MEDS: 0.9% Saline Lock 10 ML Syringe IV (21:51)
[2023-07-16 22:18] LABS: Bedside Glucose 190 mg/dL (74-106)
[2023-07-16 23:25] LABS: Urea Nitrogen, Urine 678 mg/dL (NO RANGE EST.); Urine Chloride 26 mmol/L (Not Establ.); Urine Sodium 30 mmol/L (Not Establ.)
[2023-07-16 23:44] LABS: Anion Gap 11 (5-15); BUN 12 mg/dL (7-18); BUN/Creat Ratio 18.3 RATIO (10-20); Calcium,Total 8.6 mg/dL (8.5-10.1); Chloride 90 mmol/L (98-107); Creatinine, Serum 0.66 mg/dL (0.70-1.30); EST Glomerular Filtration Rate 125 mL/min (>60); Est Glom Filt Rate - Afr Amer 152 mL/min (>60); Estimated Creatinine Clearance 81.11 ml/min; Glucose 178 mg/dL (74-106); Potassium 3.4 mmol/L (3.5-5.1); Sodium Level 127 mmol/L (136-145)
[2023-07-16 23:47] LABS: Osmolality, Urine 409 mOsm/KG
[2023-07-17 04:00] VITALS: BP 148/66; PULSE 82; RESP 18; TEMP 36.8; O2SAT 95
[2023-07-17 05:49] VITALS: BMI 27.6
[2023-07-17 06:57] LABS: Bedside Glucose 167 mg/dL (74-106)
[2023-07-17 06:58] LABS: Absolute Lymphocyte Count 1.69 X10^3/uL (0.83-4.51); Absolute Neutrophil Count 3.6 X10^3/uL (2.0-7.7); Basophil# 0.01 X10^3/uL; Basophil% 0.2 % (0-1); Eosinophil# 0.03 X10^3/uL; Eosinophils% 0.5 % (0-5); Hematocrit 34.8 % (40-54); Hemoglobin 12.2 g/dL (13.0-16.5); Lymphocyte # 1.69 X10^3/ul (0.83-4.51); Lymphocyte % 28.6 % (19-41); Mean Corp Hgb Conc 35.1 g/dL (32-36); Mean Corpuscular Hgb 27.5 pg (27.0-32.0); Mean Corpuscular Volume 78.6 fL (80-94); Mean Platelet Vol. 8.8 fl (6.2-12.0); Monocyte# 0.55 X10^3/uL; Monocyte% 9.3 % (0-10); NRBC Flagged by Analyzer 0 % (0-5); Neutrophil # 3.59 X10^3/uL (2.7-7.7); Neutrophil % 60.9 % (47-70); Platelet Count 296 K/mm3 (150-450); RBC Distribution Width CV 12.9 % (11.6-14.6); RBC Distribution Width SD 37.1 fl (35.1-43.9); Red Blood Count 4.43 M/mm3 (4.6-6.2); White Blood Count 5.9 K/mm3 (4.4-11.0)
[2023-07-17] MEDS: Ondansetron 4 MG/2 ML Vial IV (07:01)
[2023-07-17] MEDS: Insulin Lispro 100 UNIT/ML INSULN.PEN SC ×4 (07:01→22:20)
[2023-07-17] MEDS: 0.9% Saline Lock 10 ML Syringe IV (07:01)
[2023-07-17 07:37] LABS: ALB/GLOB Ratio 0.8 RATIO (0.9-2.4); AST(SGOT) 50 U/L (15-37); Alanine Aminotransfer ALT/SGPT 24 U/L (16-61); Albumin, Serum 2.9 g/dL (3.2-5.0); Alkaline Phosphatase 73 U/L (45-117); Anion Gap 8 (5-15); BUN 10 mg/dL (7-18); BUN/Creat Ratio 15.5 RATIO (10-20); Calcium,Total 8.6 mg/dL (8.5-10.1); Chloride 96 mmol/L (98-107); Creatinine, Serum 0.65 mg/dL (0.70-1.30); EST Glomerular Filtration Rate 128 mL/min (>60); Est Glom Filt Rate - Afr Amer 155 mL/min (>60); Estimated Creatinine Clearance 81.11 ml/min; Globulin 3.6 g/dL (2.2-4.2); Glucose 164 mg/dL (74-106); Magnesium 2.2 mg/dL (1.6-2.6); Potassium 3.4 mmol/L (3.5-5.1); Protein, Total 6.5 g/dL (6.4-8.2); Sodium Level 129 mmol/L (136-145); Thyroid Stim Hormone (TSH) 1.57 uIU/mL (0.358-3.74)
[2023-07-17 08:42] VITALS: BP 144/59; PULSE 79; RESP 14; TEMP 36.7; O2SAT 97
[2023-07-17] MEDS: Aspirin 81 MG TAB.CHEW PO (08:43)
[2023-07-17] MEDS: amLODIPine 5 MG Tablet PO (08:43)
[2023-07-17] MEDS: Enoxaparin 40 MG/0.4 ML Syringe SC (08:43)
--- NOTE | 2023-07-17 09:10 | CASEMGMT ---
SHAYY LOPEZ Assessment: Face to Face with pt for initial transition planning/care coordination assessment. RN JESSICA introduced self and role at [facility], pt voices understanding and consents to assessment. Pt is A&O x4 and answers all questions appropriately at this time. Pt lying in bed in no distress. Care providers, pharmacy, and demographics verified/updated. Admitting Dx: hyponatremia PCP:[facility] Specialists:jr Segovia Pharmacy: [facility] Insurance: [employer] [facility] Prescription Benefit: yes LNOK: Erica Carpenter, Living Arrangements: Pt lives with in a single story home with 2 steps to enter with a rail. Pt reports he is I in ADL's and denies concerns at home. Transportation: Pt drives self and denies concerns with transportation. DME:[facility] with sufficient supply of strips and lancets. Pt states he does not test as he should. HHC/SNF: Denies hx of Pt states no concerns with going home at time of dc. He states his is able to assist at home and takes good care of him. Pt states no further concerns/needs. CM to follow. Advised pt to ask CM if any further question/concerns/needs arise, voices understanding. Pt Goal: Home Plan: Home
[2023-07-17] MEDS: 0.9% Normal Saline (1000mL) 1,000 ML 100 ML IV ×2 (10:59→21:00)
[2023-07-17 11:06] LABS: Bedside Glucose 214 mg/dL (74-106)
--- NOTE | 2023-07-17 12:21 | CPS ---
pT INSTRUCTED TO USE ON OWN POST EATING HIS LUNCH
--- NOTE | 2023-07-17 13:47 | PCM.PN.HOSP ---
Reason for Visit Reason for Visit: Diagnoses Type 2 diabetes mellitus without complications (07/16/23) Dehydration (07/16/23) Hypo-osmolality and hyponatremia (07/16/23) Essential (primary) hypertension (07/16/23) Nausea with vomiting, unspecified (07/16/23) Weakness (07/16/23) Subjective Subjective Patient was seen and examined today, he does not complain of any nausea and vomiting to this examiner. Patient's sodium this morning was 129, potassium was 3.4. I have elected to place the patient on IV fluids at this time and recheck his electrolytes tomorrow, potassium supplementation was given. Objective Data Objective Data Vital Signs: Vital Signs Temp Pulse Resp BP Pulse Ox O2 Del Method 98.0 F 79 14 144/59 H 97 Room Air 07/17/23 08:42 07/17/23 08:42 07/17/23 08:42 07/17/23 08:42 07/17/23 08:42 07/17/23 08:45 Oxygen Delivery Method Room Air Weight: 87.2 kg Body Mass Index (BMI) 27.6 Intake & Output: Intake and Output for Last 24 Hours 07/15/23 07/16/23 07/17/23 23:59 23:59 23:59 Intake Total 1240 / 1640 1700 / 1700 Output Total 850 / 850 Balance 1240 / 1640 850 / 850 Medical Nutrition Assessment Dietitian: Malnutrition Criteria Met Start: 07/16/23 16:27 Freq: Status: Active Protocol: Document 07/16/23 16:27 SLA (Rec: 07/16/23 16:27 SLA Desktop) Nutrition Malnutrition Evidence of Malnutrition Exists Yes Malnutrition (severe): Acute Illness/Injury Evidenced By Suboptimal Energy Intake ( Severe),Weight Loss (Severe) Clinical Problem Altered Nutrient-Related Laboratory Values Etiology related to acute illness and diabetes Signs/Symptoms as evidenced by gluc 231 Status Active Problem Acute Disease or Injury Related Malnutrition Etiology related to acute illness and inadequate energy intake Signs/Symptoms as evidenced by 3.9% unintended wt loss and po intake of <75% of est nutritional needs 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 Status Active Problem Recommendation Dietitian Recommendations/Changes Will provide 8 oz strawberry glucerna shake tid w/ meals for increased nutrition if consumed Rec advance ERIKA to liberal regular d/t signs and symptoms of malnutrition - once po intake consistently good, rec change to 1999 christiana Cardiac d/t pmhx Lab / Micro Data 07/17/23 06:41 07/17/23 06:41 Labs: Laboratory Results - last 24 hr 07/16/23 13:25: Sodium 119 L*, Potassium 3.7, Chloride 81 L, Carbon Dioxide 28.0, Anion Gap 10, BUN 18, Creatinine 0.80, Estim Creat Clear Calc 87.90, Est GFR (MDRD) Af Amer 121, Est GFR (MDRD) Non-Af 100, BUN/Creatinine Ratio 22.5 H, Glucose 231 H, Calcium 9.7, Total Bilirubin 0.90, AST 52 H, ALT 28, Alkaline Phosphatase 81, Total Protein 7.3, Albumin 3.2, Globulin 4.1, Albumin/Globulin Ratio 0.8 L, Lipase 80 H 07/16/23 15:15: Urine Color Yellow, Urine Clarity Sl. Cloudy, Urine pH 6.5, Ur Specific [place] 1.015, Urine Protein 30 H, Urine Glucose (UA) 100 H, Urine Ketones 5 H, Urine Occult Blood Negative, Urine Nitrite Negative, Urine Bilirubin Negative, Urine Urobilinogen 1 H, Ur Leukocyte Esterase Negative, Urine RBC 0 SEEN, Urine WBC 0 SEEN, Ur Squamous Epith Cells 0 SEEN, Urine Bacteria 0 SEEN, Urine Mucus 0 SEEN, Urine Osmolality 409, Ur Random Sodium 30, Urine Creatinine 63.00, Urine Potassium 25.0, Urine Chloride 26, Urine Urea Nitrogen 678 07/16/23 15:56: POC Glucose 206 H 07/16/23 16:07: Sodium 118 L*, Potassium 3.5, Chloride 85 L, Carbon Dioxide 28.0, Anion Gap 5, BUN 15, Creatinine 0.70, Estim Creat Clear Calc 81.11, Est GFR (MDRD) Af Amer 141, Est GFR (MDRD) Non-Af 117, BUN/Creatinine Ratio 21.5 H, Glucose 195 H, Serum Osmolality 263 L, Calcium 8.9 07/16/23 19:26: Sodium 125 L, Potassium 3.6, Chloride 90 L, Carbon Dioxide 26.0, Anion Gap 9, BUN 13, Creatinine 0.70, Estim Creat Clear Calc 81.11, Est GFR (MDRD) Af Amer 140, Est GFR (MDRD) Non-Af 116, BUN/Creatinine Ratio 18.5, Glucose 189 H, Calcium 9.0 07/16/23 21:49: POC Glucose 190 H 07/16/23 23:10: Sodium 127 L, Potassium 3.4 L, Chloride 90 L, Carbon Dioxide 26.0, Anion Gap 11, BUN 12, Creatinine 0.66 L, Estim Creat Clear Calc 81.11, Est GFR (MDRD) Af Amer 152, Est GFR (MDRD) Non-Af 125, BUN/Creatinine Ratio 18.3, Glucose 178 H, Calcium 8.6 07/17/23 06:38: POC Glucose 167 H 07/17/23 06:41: WBC 5.9, RBC 4.43 L, Hgb 12.2 L, Hct 34.8 L, MCV 78.6 L, MCH 27.5, MCHC 35.1, RDW Std Deviation 37.1, RDW Coeff of Meghan 12.9, Plt Count 296, MPV 8.8, Immature Gran % (Auto) 0.500, Neut % (Auto) 60.9, Lymph % (Auto) 28.6, [place] % (Auto) 9.3, Eos % (Auto) 0.5, Baso % (Auto) 0.2, Absolute Neuts (auto) 3.6, Absolute Lymphs (auto) 1.69, Nucleated RBC % 0, Sodium 129 L, Potassium 3.4 L, Chloride 96 L, Carbon Dioxide 25.0, Anion Gap 8, BUN 10, Creatinine 0.65 L, Estim Creat Clear Calc 81.11, Est GFR (MDRD) Af Amer 155, Est GFR (MDRD) Non-Af 128, BUN/Creatinine Ratio 15.5, Glucose 164 H, Calcium 8.6, Magnesium 2.2, Total Bilirubin 0.60, AST 50 H, ALT 24, Alkaline Phosphatase 73, Total Protein 6.5, Albumin 2.9 L, Globulin 3.6, Albumin/Globulin Ratio 0.8 L, TSH 1.57 07/17/23 10:46: POC Glucose 214 H Micro: Microbiology 07/16/23 Unknown Stool Enteric Bacteriology - Final 07/16/23 Unknown Stool Clostridioides difficile (PCR) - Final Physical Exam Const alert, oriented x3, no apparent distress and well nourished General Appearance: cooperative, well kempt and well developed Orientation / Consciousness: awake, oriented to person, oriented to place and oriented to time HEENT normocephalic, head/scalp atraumatic and moist oral mucous membranes Eyes PERRL, EOMs intact bilaterally and conjunctivae normal Neck supple, no JVD, thyroid normal and no carotid bruits General: trachea midline Resp normal respiratory effort, no retractions, no use of accessory muscles and clear to auscultation bilaterally Auscultation: Negative for rales, rhonchi or wheezes Cardio regular rate, regular rhythm, S1 normal heart sound, S2 normal heart sound, no murmurs, no rub and no gallops GI normal to inspection, nondistended, normoactive bowel sounds, soft to palpation, non-tender and non-distended Extremity normal to inspection and no clubbing, cyanosis or edema Skin no rashes or lesions noted General Skin Exam: no breakdown Neuro oriented x3, CN's II-XII intact bilaterally, moves all extremities, no focal motor deficits and no sensory deficits noted Sensorium / Orientation: awake and alert Speech: speech normal Psych affect normal Assessment & Plan Assessment/Plan (1) Nausea & vomiting: PLAN: Plan 1. Hyponatremia-patient's sodium is improved today, I have elected to place him back on IV fluids and recheck him tomorrow. Patient's diet has been advanced #2 uncontrolled nausea and vomiting-etiology unclear, patient has had no nausea and vomiting today and I have placed him back on an ADA diet. #3 essential hypertension-patient was taken off his hydrochlorothiazide, I will continue to monitor his blood pressure, patient will restart his lisinopril tomorrow #4 type 2 diabetes-continue fingerstick blood sugar checks and sliding scale insulin #5 hyperlipidemia-continue his statin Total clinical time spent by myself addressing the patient's medical issues, reviewing all of his data, and collaborating with patient's care team: 25 minutes Charges/Coding Visit Charges Inpatient E&M: 57994 Subs Hosp L1
[2023-07-17 14:26] VITALS: BP 137/58; PULSE 80; RESP 14; TEMP 36.8; O2SAT 96
[2023-07-17] MEDS: Potassium Chloride Oral Tablet 20 MEQ 40 MEQ PO (15:57)
[2023-07-17 16:18] LABS: Bedside Glucose 154 mg/dL (74-106)
[2023-07-17 20:20] VITALS: BP 154/81; PULSE 77; RESP 16; TEMP 36.6; O2SAT 96
[2023-07-17] MEDS: Atorvastatin Calcium 40 MG Tablet PO (22:20)
[2023-07-17 22:44] LABS: Bedside Glucose 215 mg/dL (74-106)
[2023-07-18 02:20] VITALS: BP 155/72; PULSE 67; RESP 16; TEMP 36.9; O2SAT 95
[2023-07-18 04:22] VITALS: BMI 28.0
[2023-07-18] MEDS: 0.9% Normal Saline (1000mL) 1,000 ML 100 ML IV (05:36)
[2023-07-18] MEDS: Insulin Lispro 100 UNIT/ML INSULN.PEN SC (06:09)
[2023-07-18 07:41] LABS: Anion Gap 5 (5-15); BUN 8 mg/dL (7-18); BUN/Creat Ratio 11.9 RATIO (10-20); Calcium,Total 8.6 mg/dL (8.5-10.1); Chloride 101 mmol/L (98-107); Creatinine, Serum 0.67 mg/dL (0.70-1.30); EST Glomerular Filtration Rate 122 mL/min (>60); Est Glom Filt Rate - Afr Amer 147 mL/min (>60); Estimated Creatinine Clearance 88.09 ml/min; Glucose 182 mg/dL (74-106); Potassium 3.7 mmol/L (3.5-5.1); Sodium Level 131 mmol/L (136-145)
--- NOTE | 2023-07-18 08:20 | DCINST_ITS ---
Discharge Instructions Diet Discharge Diet: 1800 Calorie Control Diet Activity Discharge Activity: Return to Normal Activity Weight Bearing Status: Full weight bearing Follow Up Care Test Results: Test results from this visit will be discussed in further detail at your follow- up appointment, if applicable. Discharge Plan Admission Admit Date/Time: 07/16/23 15:09 Primary Reason for Your Visit: Hyponatremia, nausea and vomiting Attending Provider: Brennen Cavanaugh Primary Care Provider: Brennen Roland Consulting Providers: Akiko Montero Discharge Orders/Prescriptions Prescriptions: Continued metformin 850 MG tablet 850 mg PO TIDCM aspirin 81 MG tablet,chewable 81 mg PO DAILY@0800 hydrochlorothiazide 25 MG tablet 25 mg PO DAILY lisinopril 40 MG tablet 40 mg PO DAILY flaxseed oil 1,000 mg capsule 1,000 mg PO QHS glipizide 10 mg tablet extended release 24hr 10 mg PO DAILY amlodipine 5 mg tablet 5 mg PO DAILY atorvastatin 40 mg tablet 40 mg PO QHS PreserVision AREDS-2 250-90-40-1 mg capsule 1 tab PO BID Referrals / Follow Up: Brennen Roland MD [Primary Care Provider] - Within 2 Weeks Disposition Disposition (needs filled in before D/C Order can be placed): Home, Self Care
--- NOTE | 2023-07-18 08:22 | PCM.DC.SUM ---
Providers Date of Admission: 07/16/23 Date of Discharge: 07/18/23 Primary Care Physician: Dr. Brennen Roland MD Reason For Visit: HYPONATREMIA Diagnosis Discharge Diagnosis (1) Nausea & vomiting: Status: Acute Code(s): R11.2 - Nausea with vomiting, unspecified Plan 1. Hyponatremia-patient's sodium is improved today, I have elected to place him back on IV fluids and recheck him tomorrow. Patient's diet has been advanced #2 uncontrolled nausea and vomiting-etiology unclear, patient has had no nausea and vomiting today and I have placed him back on an ADA diet. #3 essential hypertension-patient was taken off his hydrochlorothiazide, I will continue to monitor his blood pressure, patient will restart his lisinopril tomorrow #4 type 2 diabetes-continue fingerstick blood sugar checks and sliding scale insulin #5 hyperlipidemia-continue his statin Total clinical time spent by myself addressing the patient's medical issues, reviewing all of his data, and collaborating with patient's care team: 25 minutes Medications at Discharge Home Medications aspirin 81 mg chewable tablet 81 mg PO DAILY@0800 heart health 09/01/13 hydrochlorothiazide 25 mg tablet 25 mg PO DAILY 09/01/13 lisinopril 40 mg tablet 40 mg PO DAILY 09/01/13 metformin 850 mg tablet 850 mg PO TIDCM 09/01/13 amlodipine 5 mg tablet 5 mg PO DAILY blood pressure 07/16/23 atorvastatin 40 mg tablet 40 mg PO QHS cholesterol 07/16/23 flaxseed oil 1,000 mg capsule 1,000 mg PO QHS supplement 07/16/23 glipizide 10 mg tablet, extended release 24 hr 10 mg PO DAILY 07/16/23 vit C 250 mg-vit E 90 mg-zinc 40 mg-copper 1 [id number] capsule (PreserVision AREDS-2) 1 tab PO BID eye supplement 07/16/23 Hospital Course Operations None Procedures None Summary of Care Provided Minutes Spent on Discharge: 30 Hospital Course: At [facility] with chief complaint nausea and vomiting, patient had COVID-19 approximately 10 days prior. He was slightly low at 12.9. Labs were monitored, patient's nausea and vomiting did not return, he did well during his hospital stay. On 08/07, patient was seen and examined: On examination he appeared in good health and spirits. Vital signs as documented. Skin warm and dry and without overt rashes. Neck without JVD, neck was supple, trachea midline, thyroid was normal. Lungs clear bilaterally, normal air movement was noted. Heart exam notable for regular rhythm, normal sounds and absence of murmurs, rubs or gallops. Abdomen unremarkable and without evidence of organomegaly, masses, or abdominal aortic enlargement. Bowel sounds are present, abdomen is not distended. Extremities nonedematous, no cyanosis was noted, no clubbing was noted. Neuro: Cranial nerves II through XII are grossly intact, no focal motor deficits were noted, sensation to light touch and pinprick intact, motor exam 5/5 throughout. Psych: Patient is alert and oriented x3, he does not appear anxious or depressed, he does not appear agitated. Patient appears stable for discharge home on 07/18/2023. Medical Records Data Medical Nutrition Assessment Dietitian: Malnutrition Criteria Met Start: 07/16/23 16:27 Freq: Status: Active Protocol: Document 07/16/23 16:27 SLA (Rec: 07/16/23 16:27 SLA Desktop) Nutrition Malnutrition Evidence of Malnutrition Exists Yes Malnutrition (severe): Acute Illness/Injury Evidenced By Suboptimal Energy Intake ( Severe),Weight Loss (Severe) Clinical Problem Altered Nutrient-Related Laboratory Values Etiology related to acute illness and diabetes Signs/Symptoms as evidenced by gluc 231 Status Active Problem Acute Disease or Injury Related Malnutrition Etiology related to acute illness and inadequate energy intake Signs/Symptoms as evidenced by 3.9% unintended wt loss and 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 Problem Recommendation Dietitian Recommendations/Changes Will provide 8 oz strawberry glucerna shake tid w/ meals for increased nutrition if consumed Rec advance ERIKA to liberal regular d/t signs and symptoms of malnutrition - once po intake consistently good, rec change to 2000 christiana Cardiac d/t pmhx Weight / BMI Weight Weight: 88.7 kg Body Mass Index (BMI) 28.0 ABG / Lab / Microbiology Data 07/17/23 06:41 07/18/23 05:31 Laboratory: Laboratory Results - last 24 hr 07/17/23 10:46: POC Glucose 214 H 07/17/23 15:56: POC Glucose 154 H 02/03/24 22:17: POC Glucose 215 H 07/18/23 05:31: Sodium 131 L, Potassium 3.7, Chloride 101, Carbon Dioxide 25.0, Anion Gap 5, BUN 8, Creatinine 0.67 L, Estim Creat Clear Calc 88.09, Est GFR (MDRD) Af Amer 147, Est GFR (MDRD) Non-Af 122, BUN/Creatinine Ratio 11.9, Glucose 182 H, Calcium 8.6 Microbiology: Microbiology 07/16/23 Unknown Stool Enteric Bacteriology - Final 07/16/23 Unknown Stool Clostridioides difficile (PCR) - Final D/C Instructions Discharge Diet: 1800 Calorie Control Diet Weight Bearing Status: Full weight bearing Meaningful Use Info Meaningful Use Diagnoses (Choose all that apply): None applicable Discharge Plan Admission Admit Date/Time: 07/16/23 15:09 Primary Reason for Your Visit: Hyponatremia, nausea and vomiting Attending Provider: Brennen Cavanaugh Primary Care Provider: Brennen Roland Consulting Providers: Akiko Montero Discharge Orders/Prescriptions Prescriptions: Continued metformin 850 MG tablet 850 mg PO TIDCM aspirin 81 MG tablet,chewable 81 mg PO DAILY@0800 hydrochlorothiazide 25 MG tablet 25 mg PO DAILY lisinopril 40 MG tablet 40 mg PO DAILY flaxseed oil 1,000 mg capsule 1,000 mg PO QHS glipizide 10 mg tablet extended release 24hr 10 mg PO DAILY amlodipine 5 mg tablet 5 mg PO DAILY atorvastatin 40 mg tablet 40 mg PO QHS PreserVision AREDS-2 250-90-40-1 mg capsule 1 tab PO BID Referrals / Follow Up: Brennen Roland MD [Primary Care Provider] - Within 2 Weeks Disposition Disposition (needs filled in before D/C Order can be placed): Home, Self Care Charges/Coding Visit Charges Inpatient E&M: 09314 Disch Hosp
[2023-07-18 08:44] VITALS: BP 141/57; PULSE 80; RESP 16; TEMP 36.6; O2SAT 97
[2023-07-18] MEDS: amLODIPine 5 MG Tablet PO (08:47)
[2023-07-18] MEDS: Aspirin 81 MG TAB.CHEW PO (08:47)
[2023-07-18] MEDS: Lisinopril 40 MG Tablet PO (08:47)
[2023-07-18 09:00] VITALS: O2SAT 96; O2SAT 98
[2023-07-18 11:18] LABS: Bedside Glucose 177 mg/dL (74-106)
== END 2023-07-18 12:18 | disposition home or self-care (01) | DRG 640 ==
LOC: ED 14:35 → PCU 14:55
PROVIDERS: Nurse Practitioner; Admitting Provider Internal Medicine; Emergency Provider Emergency Medicine; PCP Family Medicine; Visit Provider Internal Medicine
DX: E87.1 Hypo-osmolality and hyponatremia (principal); E43 Unspecified severe protein-calorie malnutrition; E11.9 Type 2 diabetes mellitus without complications; I10 Essential (primary) hypertension; E86.0 Dehydration; E78.00 Pure hypercholesterolemia, unspecified; R11.2 Nausea with vomiting, unspecified; U09.9 Post COVID-19 condition, unspecified; T50.2X5A Adverse effect of carbonic-anhydrase inhibitors, benzothiadiazides and other diuretics, initial encounter; Z79.82 Long term (current) use of aspirin; Z79.84 Long term (current) use of oral hypoglycemic drugs; Z79.899 Other long term (current) drug therapy; Z87.891 Personal history of nicotine dependence; Z68.28 Body mass index [BMI] 28.0-28.9, adult
CPT/HCPCS: 36415; 80048; 80053; 81001; 82436; 82570; 82962; 83690; 83735; 83930; 83935; 84133; 84300; 84443; 84540; 85025; 87493; 87506; 94668; 97161; 97165; 97802; 99284; J7030; A4216; J2405

== ENCOUNTER → 2025-03-23 | Outpatient (CLI) | payer MEDICARE, SELFPAY ==
[2025-03-23 18:55] LABS: Hematocrit 38.0 % (40-54); Hemoglobin 12.8 g/dL (13.0-16.5); Immature Granulocytes Count 0.030 X10^3/uL (0.0-0.0); Mean Corp Hgb Conc 33.7 g/dL (32-36); Mean Corpuscular Volume 82.6 fL (80-94); Mean Platelet Vol. 11.0 fl (6.2-12.0); NRBC Flagged by Analyzer 0 % (0-5); Platelet Count 187 K/mm3 (150-450); RBC Distribution Width CV 13.1 % (11.6-14.6); RBC Distribution Width SD 39.2 fl (35.1-43.9); Red Blood Count 4.60 M/mm3 (4.6-6.2); White Blood Count 8.9 K/mm3 (4.4-11.0)
[2025-03-23 18:57] LABS: Creatinine, Urine (random) 30.50 mg/dL (39.00-259.00); Microalbumin,Random Urine 12.9 mg/L (<20 mg/L)
[2025-03-23 19:07] LABS: AST(SGOT) 59 U/L (<=37); Alanine Aminotransfer ALT/SGPT 26 U/L (<=46); Albumin, Serum 4.7 g/dL (3.4-4.8); Alkaline Phosphatase 60 U/L (40-129); Anion Gap 16 (5-15); BUN 12 mg/dL (4-19); BUN/Creat Ratio 18.2 RATIO (10-20); Calcium,Total 9.9 mg/dL (7.6-11.0); Carbon Dioxide 22.2 mmol/L (21.0-32.0); Chloride 93 mmol/L (98-108); Cholesterol 120 mg/dL (<=200); Globulin 3.0 g/dL (2.2-4.2); Glucose 102 mg/dL (70-99); Low Density Lipoprotein Calc. 16 mg/dL; Potassium 4.0 mmol/L (3.3-5.1); Triglycerides 236 mg/dL; Very Low Density Lipoprotein 47 mg/dL (5-40); cholesterol:hdl ratio screen 2.09
== END | disposition home or self-care (01) ==
LOC: MTLAB 16:22
PROVIDERS: PCP Family Medicine; Referring Provider Family Medicine; Visit Provider Family Medicine
DX: E11.69 Type 2 diabetes mellitus with other specified complication (principal)
CPT/HCPCS: 36415; 80053; 80061; 82043; 82570; 83036; 84443; 85025

== ENCOUNTER → 2025-03-26 | Outpatient (CLI) | payer MEDICARE, SELFPAY ==
[2025-03-26 15:51] LABS: Hepatitis C Antibody Nonreactive (Nonreactive); Iron 95 ug/dL (65-175); Iron Binding Capacity,Total 327 ug/dL (250-450); Iron Binding Capacity,Unsat 232 ug/dL (228-428)
[2025-03-26 15:54] LABS: Ferritin 43 ng/mL (37-417); Vitamin B12 < 150 pg/mL (180-914)
== END | disposition home or self-care (01) ==
LOC: MTLAB 13:15
PROVIDERS: PCP Family Medicine; Referring Provider Family Medicine; Visit Provider Family Medicine
DX: D64.9 Anemia, unspecified (principal); R79.89 Other specified abnormal findings of blood chemistry
CPT/HCPCS: 82607; 82728; 83540; 83550; 86706; 86803

== ENCOUNTER → 2025-04-18 | Outpatient (CLI) | payer MEDICARE, SELFPAY ==
--- NOTE | 2025-04-18 12:55 | ECHOCS_ITS ---
Reason For Study ECHO/Echo Complete W/ Contrast
== END | disposition home or self-care (01) ==
LOC: CVS 12:54
PROVIDERS: PCP Family Medicine; Referring Provider Family Medicine; Visit Provider Family Medicine
DX: R01.1 Cardiac murmur, unspecified (principal)
CPT/HCPCS: 93306; Q9957; A4216; C8929

== ENCOUNTER → 2025-05-03 | Outpatient (CLI) | payer MEDICARE, SELFPAY ==
[2025-05-03 12:17] LABS: Hematocrit 33.2 % (40-54); Hemoglobin 10.2 g/dL (13.0-16.5); Immature Granulocytes Count 0.030 X10^3/uL (0.0-0.0); Mean Corp Hgb Conc 30.7 g/dL (32-36); Mean Corpuscular Volume 83.0 fL (80-94); Mean Platelet Vol. 10.3 fl (6.2-12.0); NRBC Flagged by Analyzer 0 % (0-5); Platelet Count 294 K/mm3 (150-450); RBC Distribution Width CV 14.2 % (11.6-14.6); RBC Distribution Width SD 43.2 fl (35.1-43.9); Red Blood Count 4.00 M/mm3 (4.6-6.2); White Blood Count 7.9 K/mm3 (4.4-11.0)
[2025-05-03 12:41] LABS: Anion Gap 15 (5-15); BUN 15 mg/dL (4-19); BUN/Creat Ratio 18.6 RATIO (10-20); Calcium,Total 9.2 mg/dL (7.6-11.0); Carbon Dioxide 21.7 mmol/L (21.0-32.0); Chloride 95 mmol/L (98-108); Glucose 179 mg/dL (70-99); Potassium 4.1 mmol/L (3.3-5.1)
[2025-05-03 13:02] LABS: Osmolality, Serum 290 mOsm/KG (280-301); Osmolality, Urine 529 mOsm/KG
== END | disposition home or self-care (01) ==
LOC: MFPLAB 09:54
PROVIDERS: PCP Family Medicine; Visit Provider Family Medicine
DX: E87.1 Hypo-osmolality and hyponatremia (principal); D64.9 Anemia, unspecified
CPT/HCPCS: 36415; 80048; 82436; 83930; 83935; 84133; 84300; 85025